=== PATIENT | female | born 1930 | race Caucasian/White ===

== ENCOUNTER → 2016-12-09 | Outpatient (CLI) | payer MEDICARE ==
[2016-12-09 11:50] LABS: Blood Urea Nitrogen 11 mg/dL (7-17); Non-African American GFR(MDRD) 60 (>60 ml/min/1.73 sqM)
--- NOTE | 2016-12-09 13:46 | CT ---
EXAMINATION TYPE: CT abdomen w con DATE OF EXAM: 12/09/2016 COMPARISON: NONE HISTORY: 86-year-old female with abdominal pain TECHNIQUE: Contiguous axial scanning of the abdomen and pelvis following administration of 100 ml Omn ipaque 300 IV contrast. Delayed through the kidneys and coronal/sagittal reconstructions performed. CT DLP: 849 mGycm Automated exposure control for dose reduction was used. FINDINGS: The heart is upper limits of normal in size without pericardial effusion. There is some patchy atelec tasis at the inferior lingula and additional mild dependent atelectasis. There is a moderate-sized hiatal hernia. No focal liver lesion or biliary ductal dilatation. Portal venous system is patent. Adrenal glands, spleen, and pancreas appear within normal limits. Subcentimeter hypodensities within the lower pole right kidney too small for accurate CT characteriza tion, suggestive of cysts. There is a 2.2 x 1.3 cm soft tissue nodule in the left renal fossa to which the left renal artery and vein extend. The left ureter extends from this structure and is mildly dilated with a internal filli ng defects along the proximal to middle third segment. There are approximately 4 filling defects rang ing from 5 mm to 2 mm, refer to axial images 39, 41, 43, 51. No dilated small bowel, free fluid, or free air. Mild stool burden. No pericolonic inflammatory change. Bones: There is an advanced degenerated levoconvex scoliosis of the lumbar spine with prior lower lum bar laminectomies. IMPRESSION: 1. A 2.2 x 1.3 cm soft tissue nodule in the left renal fossa to which the left renal vasculature exte nds and from which the left ureter arises. Findings suggest chronic renal atrophy/dysplastic kidney. 2. Approximately 4 calculi within the proximal to middle third left ureter measuring from 5 mm to 2 m m with mild hydroureter. 3. Moderate-sized hiatal hernia. 4. Advanced degenerative levoconvex scoliosis.
== END ==
LOC: RADCTMAIN 11:10
PROVIDERS: ATTEND Family Medicine
DX: N20.1 Calculus of ureter (principal); K44.9 Diaphragmatic hernia without obstruction or gangrene
CPT/HCPCS: 82565; 84520; 74160; 36415; Q9967

== ENCOUNTER → 2017-08-15 | Outpatient (CLI) | payer MEDICARE ==
--- NOTE | 2017-08-15 22:14 | MR ---
EXAMINATION TYPE: MR brain wo/w con DATE OF EXAM: 08/15/2017 COMPARISON: 07/30/2012 HISTORY: Headaches CONTRAST: Performed utilizing 6 mL intravenous Gadavist gadolinium contrast. TECHNIQUE: Multiplanar, multiecho imaging on a 3.0 Catina magnet is performed through the brain. Stud y is performed within 24 hours of arrival to the hospital. The craniovertebral junction is normal. The pituitary is normal. Diffusion-weighted imaging is performed. No abnormal hyperintensity is present to suggest an acute i ntracranial infarct or acute ischemic change. There is patchy to confluent periventricular white matter hyperintensity on T2 and inversion recovery weighted sequences. Findings are likely related to microvascular ischemic change. Ventricles and sulci are prominent for the patient age. There is on postcontrast imaging a vessel extending from the right lateral ventricle to the dural mar gin. This appears to be a venous angioma was present on the comparison study. IMPRESSIONS: 1. Atrophy with periventricular white matter ischemic changes relatively stable from the comparison o f 07/30/2012. 2. Stable venous angioma right frontal region.
--- NOTE | 2017-08-15 22:17 | MR ---
EXAMINATION TYPE: MR angio head wo con DATE OF EXAM: 08/15/2017 COMPARISON: NONE HISTORY: Headaches CONTRAST: None TECHNIQUE: Multiplanar multiecho imaging on a 3.0 Catina magnet is performed through the [place]. 3-D [id number] imaging is performed. Source images are reviewed on the computer in the axi al plane. Reconstructed images rotating on the computer are reviewed. FINDINGS: The internal carotid arteries bifurcate normally into A1 and M1 segments. The A2 segments are normal. Middle cerebral artery branches are normal. Anterior communicating artery is patent. The right posterior communicating artery is absent. The left posterior communicating artery is absent. Vertebrobasilar arteries within the [id number] are normal. Posterior cerebral vasculature is norm al. No suspicious aneurysm or aneurysmal dilatation is evident. No obstructions are identified. No significant flow-limiting stenosis is evident. Right Venous angioma is out of the [id number]. IMPRESSIONS: 1. NORMAL MRA HABEMATOLEL OF LUU.
== END | disposition home or self-care (01) ==
LOC: RADMRIMAIN 15:52
PROVIDERS: ATTEND Family Medicine
DX: I67.82 Cerebral ischemia (principal); G31.9 Degenerative disease of nervous system, unspecified; Q28.3 Other malformations of cerebral vessels
CPT/HCPCS: 82565; 70544; 70553; 36415; A9581

== ENCOUNTER → 2017-09-01 | Outpatient (CLI) | payer MEDICARE ==
--- NOTE | 2017-09-01 15:04 | BD ---
EXAMINATION TYPE: Axial Bone Density DATE OF EXAM: 09/01/2017 COMPARISON: NONE CLINICAL HISTORY: Z 78.0 Height: 4 FT 10 IN Weight: 133 FRAX RISK QUESTIONS: Secondary Osteoporosis: 3. Menopause before 45: UNSURE RISK FACTORS HISTORY OF: Active: YES Postmenopausal woman: PART HYST AGE 23 Lost more than 2 inches in height since high school: YES MEDICATIONS: Additional Medications: VIT E , MULTI,ASPIRIN, NITRO Additional History: EXAM MEASUREMENTS: Bone mineral densitometry was performed using the [employer] System. Bone mineral density as measured about the Lumbar spine is: ----- L1-L4(G/cm2): 1.366 T Score Values are as follows: ----- L2: -0.2 ----- L3: 2.5 ----- L4: 5.3 ----- L1-L4: 1.6 BASELINE Bone mineral density about the R hip (g/cm2): 0.790 Bone mineral density about the L hip (g/cm2): 0.765 T Score values are as follows: -----R Neck: -1.8 -----L Neck: -2.0 -----R Total: -0.5 -----L Total: -1.0 BASELINE IMPRESSION: Osteopenia There is a marked scoliosis. NOTE: T-SCORE=SD OF THE YOUNG ADULT MEAN.
--- NOTE | 2017-09-04 11:30 | MM ---
Reason for exam: screening (asymptomatic). Physical Findings: A clinical breast exam by your physician is recommended on an annual basis and results should be correlated with mammographic findings. MG 3D Screening Mammo W/Cad Bilateral CC and MLO view(s) were taken. No prior studies available for comparison. The breast tissue is heterogeneously dense. This may lower the sensitivity of mammography. Benign appearing bilateral calcifications. No suspicious abnormality. ASSESSMENT: Benign, BI-RAD 2 RECOMMENDATION: Routine screening mammogram of both breasts in 1 year.
== END | disposition home or self-care (01) ==
LOC: RADMAMWWP 12:36
PROVIDERS: ATTEND Family Medicine
DX: Z12.31 Encounter for screening mammogram for malignant neoplasm of breast (principal); M85.80 Other specified disorders of bone density and structure, unspecified site; Z78.0 Asymptomatic menopausal state
CPT/HCPCS: 77063; 77067; 77080

== ENCOUNTER → 2018-05-18 | Outpatient (CLI) | payer MEDICARE ==
--- NOTE | 2018-05-18 19:06 | ECHOF ---
Referral Reason:I25.2 Old myocardial infarction MEASUREMENTS -------- HEIGHT: 152.4 cm WEIGHT: 57.6 kg BP: IVSd: 1.1 cm (0.6 - 1.1) LVIDd: 3.7 cm (3.9 - 5.3) LVPWd: 1.1 cm (0.6 - 1.1) IVSs: 1.4 cm LVIDs: 2.5 cm LVPWs: 1.4 cm LAESV Index (A-L): 21.66 ml/m Ao Diam: 2.3 cm (2.0 - 3.7) AV Cusp: 1.4 cm (1.5 - 2.6) LA Diam: 3.4 cm (2.7 - 3.8) MV E Krish: 0.69 m/s MV DecT: 185 ms MV A Krish: 1.33 m/s MV E/A Ratio: 0.52 AV maxP.15 mmHg AV meanP.35 mmHg RAP: 5.00 mmHg RVSP: 23.93 mmHg FINDINGS -------- Sinus rhythm. This was a technically good study. LV size, wall thickness and systolic function are normal, with an EF greater than 55%. The left radha tricular size is normal. The right ventricle is normal in size. The left atrial size is normal. The right atrial size is normal. Aortic valve is trileaflet and is mildly thickened. There is mild aortic regurgitation. Peak/mean gradient across the Aortic Valve is 14.15mmHg / 8.35mmHg. Mild mitral annular calcification present. Mild mitral regurgitation is present. Mild tricuspid regurgitation present. There is no evidence of pulmonary hypertension. The right v entricular systolic pressure, as measured by Doppler, is 23.93mmHg. There is no pulmonic regurgitation present. The aortic root size is normal. There is no pericardial effusion. CONCLUSIONS -------- 1. LV size, wall thickness and systolic function are normal, with an EF greater than 55%. 2. The left ventricular size is normal. 3. The right ventricle is normal in size. 4. The left atrial size is normal. 5. The right atrial size is normal. 6. Aortic valve is trileaflet and is mildly thickened. 7. There is mild aortic regurgitation. 8. Peak/mean gradient across the Aortic Valve is 14.15mmHg / 8.35mmHg. 9. Mild mitral annular calcification present. 10. Mild mitral regurgitation is present. 11. Mild tricuspid regurgitation present. 12. There is no evidence of pulmonary hypertension. 13. The right ventricular systolic pressure, as measured by Doppler, is 23.93mmHg. 14. There is no pulmonic regurgitation present. 15. The aortic root size is normal. 16. There is no pericardial effusion. GOLF COURSE RANGER: Brii Jimenez RDCS
== END ==
LOC: RADECHMAIN 08:24
PROVIDERS: ATTEND Family Medicine
DX: I08.1 Rheumatic disorders of both mitral and tricuspid valves (principal)
CPT/HCPCS: 93306

== ENCOUNTER 2018-07-05 06:54 | Inpatient (IN) | payer MEDICARE ==
[2018-07-05] MEDS ORDERED: SODIUM CHLORIDE 0.9% 500 ML 500 ML IV STA (07:05)
--- NOTE | 2018-07-05 07:09 | ED ---
Syncope HPI - General Stated Complaint: syncope Time Seen by Provider: 07/05/18 07:00 Source: patient, EMS, RN notes reviewed, old records reviewed Mode of arrival: EMS - History of Present Illness Initial Comments: This is a 87-year-old female with a past medical history significant for myocardial infarction no known history of stroke or syncope who apparently was found unresponsive on a toilet and family members prior to the brought in by EMS personnel. She complained of weakness also apparently she had a burgundy- colored emesis. Additionally there was reports of altered mental status and weakness. Patient was noted upon arrival to be hyperventilating and anxious. She seems be awake alert at this time. She is answering questions. No reports of any trauma any fall. No complaints of headache chest pain shortness breath or palpitations or other symptoms at this time - Related Data Home Medications Medication Instructions Recorded Confirmed Levofloxacin [Levaquin] 500 mg PO DAILY 07/05/18 07/05/18 Multivitamins, Thera [Multivitamin 1 tab PO DAILY 07/05/18 07/05/18 (formulary)] Vitamin E (Dl,Tocopheryl Acet) 400 unit PO BID 07/05/18 07/05/18 [Vitamin E] Allergies Allergy/AdvReac Type Severity Reaction Status Date / Time aspirin AdvReac Unknown Unknown Verified 07/05/18 07:19 Review of Systems ROS Statement: Those systems with pertinent positive or pertinent negative responses have been documented in the HPI. ROS Other: All systems not noted in ROS Statement are negative. General Exam - General Exam Comments Initial Comments: This a well-developed sec appearing female who is awake alert but very anxious. General appearance: alert, anxious Head exam: Present: atraumatic, normocephalic, normal inspection Eye exam: Present: normal appearance, PERRL, EOMI. Absent: scleral icterus, conjunctival injection, periorbital swelling ENT exam: Present: mucous membranes dry Neck exam: Present: normal inspection, full ROM, other (No stridor JVD or bruits). Absent: tenderness, meningismus, lymphadenopathy Respiratory exam: Present: normal lung sounds bilaterally. Absent: respiratory distress, wheezes, rales, rhonchi, stridor Cardiovascular Exam: Present: regular rate, normal rhythm, normal heart sounds. Absent: systolic murmur, diastolic murmur, rubs, gallop, clicks GI/Abdominal exam: Present: soft, normal bowel sounds. Absent: distended, tenderness, guarding, rebound, rigid, bruit, pulsatile mass Extremities exam: Present: normal inspection, full ROM, normal capillary refill. Absent: tenderness, pedal edema, joint swelling, calf tenderness Back exam: Present: normal inspection Neurological exam: Present: alert, oriented X3, CN II-XII intact Psychiatric exam: Present: normal affect, normal mood Skin exam: Present: warm, dry, intact, normal color. Absent: rash Course Vital Signs 07/05/18 07/05/18 07/05/18 06:55 08:02 08:15 Temperature 97.4 F L Pulse Rate 65 63 63 Respiratory 18 22 20 Rate Blood Pressure 179/90 189/79 188/98 O2 Sat by Pulse 97 98 99 Oximetry 07/05/18 08:30 Temperature Pulse Rate 61 Respiratory 25 H Rate Blood Pressure 187/92 O2 Sat by Pulse 99 Oximetry - Reevaluation(s) Reevaluation #1: 07/05/18 09:37 ekg monitor: ekg monitor indicated for ruling out dysrhythmia. Patient had a heart rate of 55 no evidence of PACs or PVCs at the time. First-degree AV block is demonstrated. Reevaluation #2: 07/05/18 09:39 Reevaluation patient demonstrated the patient very anxious and did require some minimal IV sedation. Patient's was present I did discuss findings with him also. Patient has had no further episodes a syncopal episode. Patient questions whether she may have had a seizure as she was told by family that she was shaking on the toilet. EKG Findings - EKG Results: EKG: interpreted by ERMD (Sinus bradycardia rate of 54. Interval 224 QRS d uration 86 QT since QTC 490/464 first-degree AV block nonspecific lateral changes noted artifact present) Medical Decision Making - Medical Decision Making The case is discussed with Dr. Kang. Neurology will be consulted. - Lab Data Result diagrams: 07/05/18 07:45 07/05/18 07:45 Lab Results 07/05/18 07/05/18 07/05/18 Range/Units 07:14 07:45 07:45 WBC 6.4 (3.8-10.6) k/uL RBC 4.17 (3.80-5.40) m/uL Hgb 12.8 (11.4-16.0) gm/dL Hct 39.2 (34.0-46.0) % MCV 94.1 (80.0-100.0) fL MCH 30.7 (25.0-35.0) pg MCHC 32.7 (31.0-37.0) g/dL RDW 13.3 (11.5-15.5) % Plt Count 244 (150-450) k/uL Neutrophils % 66 % Lymphocytes % 26 % Monocytes % 4 % Eosinophils % 3 % Basophils % 1 % Neutrophils # 4.2 (1.3-7.7) k/uL Lymphocytes # 1.6 (1.0-4.8) k/uL Monocytes # 0.3 (0-1.0) k/uL Eosinophils # 0.2 (0-0.7) k/uL Basophils # 0.0 (0-0.2) k/uL PT (9.0-12.0) sec INR (<1.2) APTT (22.0-30.0) sec Sodium 144 (137-145) mmol/L Potassium 3.4 L (3.5-5.1) mmol/L Chloride 110 H (98-107) mmol/L Carbon Dioxide 25 (22-30) mmol/L Anion Gap 9 mmol/L BUN 14 (7-17) mg/dL Creatinine 0.72 (0.52-1.04) mg/dL Est GFR (CKD-EPI)AfAm 87 (>60 ml/min/1.73 sqM) Est GFR (CKD-EPI)NonAf 75 (>60 ml/min/1.73 sqM) Glucose 101 H (74-99) mg/dL POC Glucose (mg/dL) 116 H (75-99) mg/dL POC Glu Auto Radio Mechanic ID Anamika Horowitz Plasma Lactic Acid Jourdan (0.7-2.0) mmol/L Calcium 9.4 (8.4-10.2) mg/dL Magnesium 2.0 (1.6-2.3) mg/dL Total Bilirubin 0.9 (0.2-1.3) mg/dL AST 23 (14-36) U/L ALT 27 (9-52) U/L Alkaline Phosphatase 48 (38-126) U/L Creatine Kinase 154 H (30-135) U/L Troponin I (0.000-0.034) ng/mL Total Protein 6.9 (6.3-8.2) g/dL Albumin 4.1 (3.5-5.0) g/dL Urine Color Urine Appearance (Clear) Urine pH (5.0-8.0) Ur Specific [place] (1.001-1.035) Urine Protein (Negative) Urine Glucose (UA) (Negative) Urine Ketones (Negative) Urine Blood (Negative) Urine Nitrite (Negative) Urine Bilirubin (Negative) Urine Urobilinogen (<2.0) mg/dL Ur Leukocyte Esterase (Negative) Urine RBC (0-5) /hpf Urine WBC (0-5) /hpf Ur Squamous Epith Cells (0-4) /hpf Urine Mucus (None) /hpf Stool Occult Blood (Negative) 07/05/18 07/05/18 07/05/18 Range/Units 07:45 07:45 07:45 WBC (3.8-10.6) k/uL RBC (3.80-5.40) m/uL Hgb (11.4-16.0) gm/dL Hct (34.0-46.0) % MCV (80.0-100.0) fL MCH (25.0-35.0) pg MCHC (31.0-37.0) g/dL RDW (11.5-15.5) % Plt Count (150-450) k/uL Neutrophils % % Lymphocytes % % Monocytes % % Eosinophils % % Basophils % % Neutrophils # (1.3-7.7) k/uL Lymphocytes # (1.0-4.8) k/uL Monocytes # (0-1.0) k/uL Eosinophils # (0-0.7) k/uL Basophils # (0-0.2) k/uL PT 10.7 (9.0-12.0) sec INR 1.0 (<1.2) APTT 23.0 (22.0-30.0) sec Sodium (137-145) mmol/L Potassium (3.5-5.1) mmol/L Chloride (98-107) mmol/L Carbon Dioxide (22-30) mmol/L Anion Gap mmol/L BUN (7-17) mg/dL Creatinine (0.52-1.04) mg/dL Est GFR (CKD-EPI)AfAm (>60 ml/min/1.73 sqM) Est GFR (CKD-EPI)NonAf (>60 ml/min/1.73 sqM) Glucose (74-99) mg/dL POC Glucose (mg/dL) (75-99) mg/dL POC Glu Auto Radio Mechanic ID Plasma Lactic Acid Jourdan 1.6 (0.7-2.0) mmol/L Calcium (8.4-10.2) mg/dL Magnesium (1.6-2.3) mg/dL Total Bilirubin (0.2-1.3) mg/dL AST (14-36) U/L ALT (9-52) U/L Alkaline Phosphatase (38-126) U/L Creatine Kinase (30-135) U/L Troponin I <0.012 (0.000-0.034) ng/mL Total Protein (6.3-8.2) g/dL Albumin (3.5-5.0) g/dL Urine Color Urine Appearance (Clear) Urine pH (5.0-8.0) Ur Specific [place] (1.001-1.035) Urine Protein (Negative) Urine Glucose (UA) (Negative) Urine Ketones (Negative) Urine Blood (Negative) Urine Nitrite (Negative) Urine Bilirubin (Negative) Urine Urobilinogen (<2.0) mg/dL Ur Leukocyte Esterase (Negative) Urine RBC (0-5) /hpf Urine WBC (0-5) /hpf Ur Squamous Epith Cells (0-4) /hpf Urine Mucus (None) /hpf Stool Occult Blood (Negative) 07/05/18 07/05/18 Range/Units 07:55 08:43 WBC (3.8-10.6) k/uL RBC (3.80-5.40) m/uL Hgb (11.4-16.0) gm/dL Hct (34.0-46.0) % MCV (80.0-100.0) fL MCH (25.0-35.0) pg MCHC (31.0-37.0) g/dL RDW (11.5-15.5) % Plt Count (150-450) k/uL Neutrophils % % Lymphocytes % % Monocytes % % Eosinophils % % Basophils % % Neutrophils # (1.3-7.7) k/uL Lymphocytes # (1.0-4.8) k/uL Monocytes # (0-1.0) k/uL Eosinophils # (0-0.7) k/uL Basophils # (0-0.2) k/uL PT (9.0-12.0) sec INR (<1.2) APTT (22.0-30.0) sec Sodium (137-145) mmol/L Potassium (3.5-5.1) mmol/L Chloride (98-107) mmol/L Carbon Dioxide (22-30) mmol/L Anion Gap mmol/L BUN (7-17) mg/dL Creatinine (0.52-1.04) mg/dL Est GFR (CKD-EPI)AfAm (>60 ml/min/1.73 sqM) Est GFR (CKD-EPI)NonAf (>60 ml/min/1.73 sqM) Glucose (74-99) mg/dL POC Glucose (mg/dL) (75-99) mg/dL POC Glu Auto Radio Mechanic ID Plasma Lactic Acid Jourdan (0.7-2.0) mmol/L Calcium (8.4-10.2) mg/dL Magnesium (1.6-2.3) mg/dL Total Bilirubin (0.2-1.3) mg/dL AST (14-36) U/L ALT (9-52) U/L Alkaline Phosphatase (38-126) U/L Creatine Kinase (30-135) U/L Troponin I (0.000-0.034) ng/mL Total Protein (6.3-8.2) g/dL Albumin (3.5-5.0) g/dL Urine Color Colorless Urine Appearance Clear (Clear) Urine pH 7.5 (5.0-8.0) Ur Specific [place] 1.007 (1.001-1.035) Urine Protein Negative (Negative) Urine Glucose (UA) Negative (Negative) Urine Ketones Trace H (Negative) Urine Blood Negative (Negative) Urine Nitrite Negative (Negative) Urine Bilirubin Negative (Negative) Urine Urobilinogen <2.0 (<2.0) mg/dL Ur Leukocyte Esterase Small H (Negative) Urine RBC 2 (0-5) /hpf Urine WBC 6 H (0-5) /hpf Ur Squamous Epith Cells <1 (0-4) /hpf Urine Mucus Rare H (None) /hpf Stool Occult Blood Negative (Negative) Critical Care Time Critical Care Time: Yes Critical Care Time: 31 minutes of critical care time which includes initial presentation with history physical labs x-rays multiple reevaluation the patient. Discussed with the patient's family discussed with the main physician admission orders and documentation of the above Disposition Clinical Impression: Syncopal episodes, Anxiety reaction, Dehydration Disposition: ADMITTED IP TO THIS [facility] Condition: Fair Referrals: None,Stated [REFERRING] - 1-2 days
[2018-07-05 07:17] LABS: Glucose,Whole Blood 116 mg/dL (75-99)
--- NOTE | 2018-07-05 07:39 | XR ---
EXAMINATION TYPE: XR chest 2V DATE OF EXAM: 07/05/2018 COMPARISON: 2 view chest x-ray December 20, 2012 HISTORY: Syncope and weakness. TECHNIQUE: Frontal and lateral views of the chest are obtained. FINDINGS: Diminished inspiration on current study is seen. There is chronic parenchymal change withou t suspicious focal air space opacity, pleural effusion, or pneumothorax seen. The cardiac silhouette size is upper limits of normal with atherosclerotic and ectatic aorta. Retrocardiac opacity consist ent with moderate to large size hiatal hernia is present The osseous structures are intact. IMPRESSION: Chronic changes without acute pulmonary process.
--- NOTE | 2018-07-05 07:41 | CT ---
EXAMINATION TYPE: CT brain wo con DATE OF EXAM: 07/05/2018 HISTORY: syncope CT DLP: 2112.4 mGycm. Automated Exposure Control for Dose Reduction was Utilized. TECHNIQUE: CT scan of the head is performed without contrast. COMPARISON: MRI brain August 15, 2017. FINDINGS: There is no acute intracranial hemorrhage or midline shift identified. There is diffuse v entricular and sulcal prominence consistent with diffuse age-related cerebral atrophy. There is low- attenuation in the periventricular white matter consistent with chronic small vessel ischemic change. Bilateral scleral calcifications are present. Visualized sinuses are clear. IMPRESSION: No acute intracranial hemorrhage or midline shift. There is moderate diffuse age-relate d cerebral atrophy and chronic small vessel ischemic change redemonstrated.
[2018-07-05] MEDS: SODIUM CHLORIDE 0.9% 1,000 ML IV STA ×2 (07:42→12:10)
[2018-07-05 07:59] LABS: Basophils % (A) 1 %; Eosinophils # (A) 0.2 k/uL (0-0.7); Eosinophils % (A) 3 %; HCT 39.2 % (34.0-46.0); HGB 12.8 gm/dL (11.4-16.0); Lymphocytes # (A) 1.6 k/uL (1.0-4.8); Lymphocytes % (A) 26 %; MCH 30.7 pg (25.0-35.0); MCHC 32.7 g/dL (31.0-37.0); MCV 94.1 fL (80.0-100.0); Mean Platelet Volume 6.8; Monocytes # (A) 0.3 k/uL (0-1.0); Monocytes % (A) 4 %; Neutrophils # (A) 4.2 k/uL (1.3-7.7); Neutrophils % (A) 66 %; Platelet Count 244 k/uL (150-450); RBC 4.17 m/uL (3.80-5.40); RDW 13.3 % (11.5-15.5); WBC 6.4 k/uL (3.8-10.6)
[2018-07-05 08:05] LABS: Prothrombin Time 10.7 sec (9.0-12.0)
[2018-07-05 08:08] LABS: Albumin 4.1 g/dL (3.5-5.0); Calcium 9.4 mg/dL (8.4-10.2); Potassium 3.4 mmol/L (3.5-5.1); Total Bilirubin 0.9 mg/dL (0.2-1.3); Total Protein 6.9 g/dL (6.3-8.2)
[2018-07-05] MEDS ORDERED: LORazepam 2 MG/ML INJ IV STA (08:14)
[2018-07-05 09:04] LABS: Appearance,Urine Clear (Clear); Bilirubin,Urine Negative (Negative); Blood,Urine Negative (Negative); Color,Urine Colorless; Glucose,Urine (UA) Negative (Negative); Ketones,Urine Trace (Negative); Leukocyte Esterase,Urine Small (Negative); Mucus,Urine Rare /hpf; Nitrite,Urine Negative (Negative); PH, Urine 7.5 (5.0-8.0); Protein,Urine Negative (Negative); RBC,Urine 2 /hpf (0-5); Specific Gravity,Urine 1.007 (1.001-1.035); Squamous Epithelial Cell,Urine <1 /hpf (0-4); Urobilinogen,Urine <2.0 mg/dL (<2.0); WBC,Urine 6 /hpf (0-5)
[2018-07-05] MEDS ORDERED: ACETAMINOPHEN TAB 325 MG TAB PO PRN (09:41)
[2018-07-05] MEDS ORDERED: NALOXONE 0.4 MG/ML 1 ML VIAL IV PRN (09:41)
[2018-07-05] MEDS ORDERED: LORazepam 1 MG TAB PO PRN (11:38)
--- NOTE | 2018-07-05 11:44 | P.HPIM ---
History of Present Illness 87-year-old female was found in the bathroom sitting on the toilet with some tremorous motion family concerned with seizures. Patient was being worked up in family practice physician for the same do not have the results back from those tests. Patient noted to be hypertensive lisinopril started. Patient to be evaluated by cardiology and neurology Dr. Chao Review of Systems Gastrointestinal: Reports constipation, Reports diarrhea Past Medical History Past Medical History: Asthma, Osteoarthritis (OA) Additional Past Medical History / Comment(s): Spinal stenosis, scoliosis, chronic back pain radiates down L leg with numbness/burning sensation, born with single kidney, allery induced asthma. History of Any Multi-Drug Resistant Organisms: None Reported Past Surgical History: Adenoidectomy, Appendectomy, Back Surgery, Tonsillectomy Additional Past Surgical History / Comment(s): L5-S1 decompression lumbar laminectomy, bilateral cataract removal/lens implants, Past Anesthesia/Blood Transfusion Reactions: No Reported Reaction Smoking Status: Never smoker - Past Family History Father Family Medical History: Cancer Additional Family Medical History / Comment(s): Father had cancer-pt's spouse unsure what type. Mother Family Medical History: No Reported History Medications and Allergies Home Medications Medication Instructions Recorded Confirmed Type Levofloxacin [Levaquin] 500 mg PO DAILY 07/05/18 07/05/18 History Multivitamins, Thera [Multivitamin 1 tab PO DAILY 07/05/18 07/05/18 History (formulary)] Vitamin E (Dl,Tocopheryl Acet) 400 unit PO BID 07/05/18 07/05/18 History [Vitamin E] Allergies Allergy/AdvReac Type Severity Reaction Status Date / Time aspirin AdvReac Unknown Unknown Verified 07/05/18 07:19 Physical Exam Vitals: Vital Signs Temp Pulse Resp BP Pulse Ox 07/05/18 10:15 51 L 18 176/82 96 07/05/18 09:45 54 L 17 177/70 07/05/18 09:30 51 L 18 166/70 07/05/18 09:15 72 20 180/95 96 07/05/18 09:00 53 L 18 176/72 90 L 07/05/18 08:30 61 25 H 187/92 99 07/05/18 08:15 63 20 188/98 99 07/05/18 08:02 63 22 189/79 98 07/05/18 06:55 97.4 F L 65 18 179/90 97 Intake and Output 07/04/18 07/05/18 07/05/18 22:59 06:59 14:59 Other: Weight 75.4 kg - Constitutional General appearance: mild distress - EENT Eyes: PERRLA Ears: bilateral: normal - Neck Neck: normal ROM - Respiratory Respiratory: bilateral: CTA - Cardiovascular Rhythm: regular - Gastrointestinal General gastrointestinal: soft - Integumentary Integumentary: normal - Neurologic Neurologic: CNII-XII intact - Musculoskeletal Musculoskeletal: generalized weakness - Psychiatric Psychiatric: A&O x's 3 Results CBC & Chem 7: 07/05/18 07:45 07/05/18 07:45 Labs: Abnormal Lab Results - Last 24 Hours (Table) 07/05/18 07/05/18 07/05/18 Range/Units 07:14 07:45 08:43 Potassium 3.4 L (3.5-5.1) mmol/L Chloride 110 H (98-107) mmol/L Glucose 101 H (74-99) mg/dL POC Glucose (mg/dL) 116 H (75-99) mg/dL Creatine Kinase 154 H (30-135) U/L Urine Ketones Trace H (Negative) Ur Leukocyte Esterase Small H (Negative) Urine WBC 6 H (0-5) /hpf Urine Mucus Rare H (None) /hpf Chest x-ray: report reviewed CT Scan - head: report reviewed Thrombosis Risk Factor Assmnt - Choose All That Apply Any of the Below Risk Factors Present?: Yes Each Factor Represents 1 point: Obesity (BMI >25) Other Risk Factors: Yes Each Risk Factor Represents 3 Points: Age 75 years or older Other congenital or acquired thrombophilia - If yes, enter type in comment: No Thrombosis Risk Factor Assessment Total Risk Factor Score: 4 Thrombosis Risk Factor Assessment Level: Moderate Risk Assessment and Plan Plan: Assessment Syncope Anxiety reaction Dehydration Hypertension Diarrhea recent Levaquin for UTI History of asthma 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
[2018-07-05] MEDS: SODIUM CHLORIDE 0.9% 1,000 ML IV SCH ×2 (12:10→23:13)
--- NOTE | 2018-07-05 13:34 | P.CNNES ---
History of Present Illness Consult date: 07/05/18 Reason for Consult: Syncopal episode History of Present Illness: Patient is a 87-year-old female who came to the hospital this morning for altere d mental status. Patient apparently got up at 5 AM as usual, woke her up and according to her was "walking all over the house". She was confused, went to the bathroom wanted to throw up. Patient does not use any assistive device. noticed that patient was jerking. There is no clinical evidence of dementia as per her . Patient appears very restless, gasping for air, stating "help me" but not able to tell what is hurting. Denies any headache, chest pain or any pain in the body. Please refer to examination below. Patient had computed tomography scan of the head, which revealed no acute process. There is moderate diffuse age-related cerebral atrophy and chronic small vessel ischemic change. EKG showed sinus bradycardia with first-degree AV block. Blood tests showed normal CBC, PT/PTT, sodium 144 potassium 3.4 normal renal functions. Urinalysis is negative for infection, showed small amount of leukocyte esterase, 6 WBCs. Her last hemoglobin A1c no rmal 5.5 couple years ago. Patient was hospitalized 1 week prior to the for couple falls and a UTI. One of the falls she was walking to the front door, when she flopped down and fell. Another event happened in the bedroom. She was admitted to another hospital where she underwent testing and everything came back normal. Patient had an MRI of the brain performed 08/15/2017 which was normal. Patient had a normal MRA of the head also. Patient had a 2-D echo on 05/18/2018, which revealed EF 55% left-ventricular size is normal. Left atrial size is normal. Patient's cholesterol is 260, LDL 177 Review of Systems Patient denies headache, chest pain or pain in the body. Patient states she is not feeling well. Cannot tell what exactly. Rest of the review of systems cannot be obtained at this time because of patient's mental status. Past Medical History Past Medical History: Asthma, Osteoarthritis (OA) Additional Past Medical History / Comment(s): Spinal stenosis, scoliosis, chr onic back pain radiates down L leg with numbness/burning sensation, born with single kidney, allery induced asthma. History of Any Multi-Drug Resistant Organisms: None Reported Past Surgical History: Adenoidectomy, Appendectomy, Back Surgery, Tonsillectomy Additional Past Surgical History / Comment(s): L5-S1 decompression lumbar laminectomy, bilateral cataract removal/lens implants, Past Anesthesia/Blood Transfusion Reactions: No Reported Reaction Smoking Status: Never smoker - Past Family History Father Family Medical History: Cancer Additional Family Medical History / Comment(s): Father had cancer-pt's spouse unsure what type. Mother Family Medical History: No Reported History Medications and Allergies Home Medications Medication Instructions Recorded Confirmed Type Levofloxacin [Levaquin] 500 mg PO DAILY 07/05/18 07/05/18 History Multivitamins, Thera [Multivitamin 1 tab PO DAILY 07/05/18 07/05/18 History (formulary)] Vitamin E (Dl,Tocopheryl Acet) 400 unit PO BID 07/05/18 07/05/18 History [Vitamin E] Allergies Allergy/AdvReac Type Severity Reaction Status Date / Time aspirin AdvReac Unknown Unknown Verified 07/05/18 07:19 Physical Examination - Vital Signs Vital Signs: Vital Signs Temp Pulse Resp BP Pulse Ox 07/05/18 10:15 51 L 18 176/82 96 07/05/18 09:45 54 L 17 177/70 07/05/18 09:30 51 L 18 166/70 07/05/18 09:15 72 20 180/95 96 07/05/18 09:00 53 L 18 176/72 90 L 07/05/18 08:30 61 25 H 187/92 99 07/05/18 08:15 63 20 188/98 99 07/05/18 08:02 63 22 189/79 98 07/05/18 06:55 97.4 F L 65 18 179/90 97 Intake and Output 07/04/18 07/05/18 07/05/18 22:59 06:59 14:59 Other: Weight 75.4 kg On examination patient is an elderly female, who is laying in the bed slightly diagonally. Patient was somnolent, has just gone to sleep. Patient went wakes up, thrashes in the bed. Very restless, gasping for air. States "help me". Patient able to tell me her name, name of her friend. Patient speaks clearly with no aphasia or dysarthria. She is breathing hard. Her face is symmetric. Pupils are round and reactive to light. Visual terrell could not be tested because of patient's non-compliance. 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 Patient moves her arms, left slightly more than the right. However when I elevate both arms up, both of them fall down with equal velocity/intensity with no loss of tone in any one extremity. Patient moves both lower extremities. Patient more easily touches her nose with the left index finger as compared to the right. She does have an IV line in the right elbow also which may be hampering. Reflexes are 1+ to 2 and plantars are upgoing bilaterally. Tone is normal bilaterally. Results - Laboratory Findings CBC and BMP: 07/05/18 07:45 07/05/18 07:45 Abnormal Lab Findings: Abnormal Labs 07/05/18 07/05/18 07/05/18 07:14 07:45 08:43 Potassium 3.4 L Chloride 110 H Glucose 101 H POC Glucose (mg/dL) 116 H Creatine Kinase 154 H Urine Ketones Trace H Ur Leukocyte Esterase Small H Urine WBC 6 H Urine Mucus Rare H Assessment and Plan Assessment: * Altered mental status, possible toxic metabolic encephalopathy. CVA appears less likely. Patient not on any medication at home that would produce altered mental status. * Dyskinesias/restlessness, unclear etiology possibly due to delirium. Plan: Agree with checking carotid Doppler. We will also check EEG to rule out any epileptiform activity. We will start aspirin 325 mg daily for now. We will check TSH, free T4, B12, folate, A1c. We will follow clinically with you.
--- NOTE | 2018-07-05 13:40 | P.CRDCN ---
History of Present Illness Consult date: 07/05/18 History of present illness: This is a 87-year-old female patient with no significant cardiac history who was brought by her family to the emergency room for further evaluation of change in mental status. The patient herself is very lethargic and sleepy and poor historian. The history was taken from her was bedside. According to her , the patient normally is very independent. She was in her usual state of health that this morgue attendant when the patient woke up her from sleep and at that point he noticed that she was confused. The patient stated that she felt that she was sick to her stomach at that point. Because of that the patient was brought to the emergency room for further evaluation. No indication that the patient didn't have any symptoms of chest pain or chest discomfort, feeling of heart racing or fluttering, or loss of consciousness. Currently the patient is in process of having a work up by the neurology service. The EKG showed sinus rhythm with sinus bradycardia and nonspecific changes only. No clearcut ischemic ST or T-wave abnormalities noted. She underwent a CTA of the brain which also did not show any acute abnormalities. The chest x-ray did not show any acute abnormalities. We get involved in the care of the patient for further evaluation of sinus bradycardia. The minimal heart rate the patient was in in the hospital was 60 beats per minutes. Currently she is not on any AV mercedes jovany agents. Past Medical History Past Medical History: Asthma, Osteoarthritis (OA) Additional Past Medical History / Comment(s): Spinal stenosis, scoliosis, chronic back pain radiates down L leg with numbness/burning sensation, born with single kidney, allery induced asthma. History of Any Multi-Drug Resistant Organisms: None Reported Past Surgical History: Adenoidectomy, Appendectomy, Back Surgery, Tonsillectomy Additional Past Surgical History / Comment(s): L5-S1 decompression lumbar laminectomy, bilateral cataract removal/lens implants, Past Anesthesia/Blood Transfusion Reactions: No Reported Reaction Smoking Status: Never smoker - Past Family History Father Family Medical History: Cancer Additional Family Medical History / Comment(s): Father had cancer-pt's spouse unsure what type. Mother Family Medical History: No Reported History Medications and Allergies Home Medications Medication Instructions Recorded Confirmed Type Levofloxacin [Levaquin] 500 mg PO DAILY 07/05/18 07/05/18 History Multivitamins, Thera [Multivitamin 1 tab PO DAILY 07/05/18 07/05/18 History (formulary)] Vitamin E (Dl,Tocopheryl Acet) 400 unit PO BID 07/05/18 07/05/18 History [Vitamin E] Allergies Allergy/AdvReac Type Severity Reaction Status Date / Time aspirin AdvReac Unknown Unknown Verified 07/05/18 07:19 Physical Exam Vitals: Vital Signs Temp Pulse Resp BP Pulse Ox 07/05/18 10:15 51 L 18 176/82 96 07/05/18 09:45 54 L 17 177/70 07/05/18 09:30 51 L 18 166/70 07/05/18 09:15 72 20 180/95 96 07/05/18 09:00 53 L 18 176/72 90 L 07/05/18 08:30 61 25 H 187/92 99 07/05/18 08:15 63 20 188/98 99 07/05/18 08:02 63 22 189/79 98 07/05/18 06:55 97.4 F L 65 18 179/90 97 Intake and Output 07/04/18 07/05/18 07/05/18 22:59 06:59 14:59 Other: Weight 75.4 kg - Constitutional General appearance: no acute distress - Respiratory Respiratory: bilateral: CTA - Cardiovascular Rhythm: regular Heart sounds: normal: S1, S2 Abnormal Heart Sounds: systolic murmur Results 07/05/18 07:45 07/05/18 07:45 Cardiac Enzymes 07/05/18 07/05/18 Range/Units 07:45 07:45 AST 23 (14-36) U/L Troponin I <0.012 (0.000-0.034) ng/mL Coagulation 07/05/18 Range/Units 07:45 PT 10.7 (9.0-12.0) sec APTT 23.0 (22.0-30.0) sec CBC 07/05/18 Range/Units 07:45 WBC 6.4 (3.8-10.6) k/uL RBC 4.17 (3.80-5.40) m/uL Hgb 12.8 (11.4-16.0) gm/dL Hct 39.2 (34.0-46.0) % Plt Count 244 (150-450) k/uL Comprehensive Metabolic Panel 07/05/18 Range/Units 07:45 Sodium 144 (137-145) mmol/L Potassium 3.4 L (3.5-5.1) mmol/L Chloride 110 H (98-107) mmol/L Carbon Dioxide 25 (22-30) mmol/L BUN 14 (7-17) mg/dL Creatinine 0.72 (0.52-1.04) mg/dL Glucose 101 H (74-99) mg/dL Calcium 9.4 (8.4-10.2) mg/dL AST 23 (14-36) U/L ALT 27 (9-52) U/L Alkaline Phosphatase 48 (38-126) U/L Total Protein 6.9 (6.3-8.2) g/dL Albumin 4.1 (3.5-5.0) g/dL Current Medications Generic Name Dose Route Start Last Admin Trade Name Freq PRN Reason Stop Dose Admin Acetaminophen 650 mg 07/05/18 09:41 Tylenol Tab PO Q6HR PRN Mild Pain or Fever > 100.5 Sodium Chloride 1,000 mls @ 75 mls/hr 07/05/18 07:05 07/05/18 12:10 Saline 0.9% IV 07/05/18 20:24 75 mls/hr .[id number] STA Administration Sodium Chloride 1,000 mls @ 80 mls/hr 07/05/18 09:45 07/05/18 12:10 Saline 0.9% IV Not Given .[id number] BARBARA Lisinopril 10 mg 07/06/18 09:00 Zestril PO DAILY BARBARA Lorazepam 1 mg 07/05/18 11:38 Ativan PO BID PRN Anxiety Multivitamins 1 each 07/06/18 09:00 Theragran PO DAILY BARBARA Naloxone HCl 0.2 mg 07/05/18 09:41 Narcan IV Q2M PRN Opioid Reversal Vitamin E 400 unit 07/05/18 21:00 Vitamin E PO BID BARBARA Intake and Output 07/04/18 07/05/18 07/05/18 22:59 06:59 14:59 Other: Weight 75.4 kg 07/05/18 07:45 07/05/18 07:45 Assessment and Plan Assessment: Assessment #1 change in mental status of unknown etiology #2 bradycardia with heart rate in the 50s #3 history of nephrectomy Plan #1 continue monitor the heart rate #2 the patient is not on any AV mercedes jovany agents #3 check the TSH #4 an echocardiogram was Doppler #5 follow-up with the patient Thank you for allowing us participate in her care and we'll continue following up with the patient
[2018-07-05 15:28] LABS: T4, Free (Free Thyroxine) 1.25 ng/dL (0.78-2.19)
--- NOTE | 2018-07-05 17:21 | US ---
EXAMINATION TYPE: US carotid duplex BILAT DATE OF EXAM: 07/05/2018 COMPARISON: NONE CLINICAL HISTORY: AMS, syncope. EXAM MEASUREMENTS: RIGHT: Peak Systolic Velocity (PSV) cm/sec ----- Right CCA: 36.9 ----- Right ICA: 69.7 ----- Right ECA: 67.1 ICA/CCA ratio: 1.9 RIGHT: End Diastole cm/sec ----- Right CCA: 6.3 ----- Right ICA: 6.0 ----- Right ECA: 0.0 LEFT: Peak Systolic Velocity (PSV) cm/sec ----- Left CCA: 70.2 ----- Left ICA: 68.0 ----- Left ECA: 219.9 ICA/CCA ratio: 1.0 LEFT: End Diastole cm/sec ----- Left CCA: 9.8 ----- Left ICA: 11.3 ----- Left ECA: 0.0 VERTEBRALS (direction of flow): Right Vertebral: Antegrade Left Vertebral: Antegrade Rhythm: Normal Technically difficult study performed portably on a patient who was sleeping and did not wake up duri ng exam. No significant stenosis seen. Elevated left ECA velocity. IMPRESSION: There is antegrade flow in the vertebral arteries. Images in measurements suggest less t tavarez 50% stenosis in both internal carotid arteries. There is evidence of 50-70% stenosis in the left external carotid artery. Criteria for Assigning % of Stenosis / Diameter reduction (Estimation based on the indirect measurements of the internal carotid artery velocities (ICA PSV). 1. Normal (no stenosis)=ICA PSV < 125 cm/s: ratio < 2.0: ICA EDV<40 cm/s. 2. Less than 50% stenosis=ICA PSV < 125 cm/s: ratio < 2.0: ICA EDV<40 cm/s. 3. 50 to 69% stenosis=ICA PSV of 125 to 230 cm/s: ration 2.0 ? 4.0: ICA EDV 40-100 cm/s. 4. Greater than 70% stenosis to near occlusion= ICA PSV > 230 cm/s: ratio > 4.0: ICA EDV > 100 cm/s. 5. Near occlusion= ICA PSV velocities may be low or undetectable: variable ratio and ICA EDV. 6. Total occlusion=unable to detect flow.
[2018-07-05 20:37] LABS: ABG Base Excess -2.4 mmol/L; ABG HCO3 19 mmol/L (21-25); ABG Oxygen Saturation 97.8 % (94-97); ABG PO2 114 mmHg (83-108); ABG TCO2 20 mmol/L (19-24); Allen Test Performed? Yes
[2018-07-05 20:39] LABS: ABG PCO2 19 mmHg (35-45)
[2018-07-05 20:48] LABS: Glucose,Whole Blood 105 mg/dL (75-99)
--- NOTE | 2018-07-05 21:03 | XR ---
EXAMINATION TYPE: XR chest 1V portable DATE OF EXAM: 07/05/2018 COMPARISON: 07/05/2018 HISTORY: Short of breath TECHNIQUE: Single frontal view of the chest is obtained. FINDINGS: There is no heart failure nor confluent pneumonic infiltrate. Costophrenic angles are anders r. There are chest leads. Thoracic aorta is atheromatous. IMPRESSION: No active cardiopulmonary disease. Cardiomegaly. Hiatal hernia appears decreased compare d to old exam.
[2018-07-05 21:05] LABS: Basophils % (A) 0 %; Eosinophils # (A) 0.2 k/uL (0-0.7); Eosinophils % (A) 2 %; HCT 43.1 % (34.0-46.0); HGB 13.9 gm/dL (11.4-16.0); Lymphocytes # (A) 1.4 k/uL (1.0-4.8); Lymphocytes % (A) 15 %; MCH 30.7 pg (25.0-35.0); MCHC 32.2 g/dL (31.0-37.0); MCV 95.4 fL (80.0-100.0); Monocytes # (A) 0.2 k/uL (0-1.0); Monocytes % (A) 3 %; Neutrophils # (A) 7.3 k/uL (1.3-7.7); Neutrophils % (A) 79 %; Platelet Count 278 k/uL (150-450); RBC 4.52 m/uL (3.80-5.40); RDW 13.5 % (11.5-15.5); WBC 9.2 k/uL (3.8-10.6)
[2018-07-05] MEDS ORDERED: FUROSEMIDE 10 MG/ML 2 ML VIAL IV STA (21:05)
[2018-07-05 21:15] LABS: ALT 21 U/L (9-52); AST 27 U/L (14-36); African American GFR (CKD) >90 (>60 ml/min/1.73 sqM); Albumin 4.6 g/dL (3.5-5.0); Alkaline Phosphatase 67 U/L (38-126); Anion Gap 13 mmol/L; Blood Urea Nitrogen 13 mg/dL (7-17); Calcium 9.8 mg/dL (8.4-10.2); Carbon Dioxide 22 mmol/L (22-30); Chloride 110 mmol/L (98-107); Glucose 126 mg/dL (74-99); Sodium 145 mmol/L (137-145); Total Protein 7.7 g/dL (6.3-8.2)
[2018-07-05 21:16] LABS: Ammonia <9 umol/L (<30)
[2018-07-05] MEDS ORDERED: SODIUM CHLORIDE 0.9% 1,000 ML IV ONE (22:17)
[2018-07-05] MEDS ORDERED: ACETAMINOPHEN IV (For NPO) 1,000 MG in EMPTY BAG 1 BAG IVPB STA (22:18)
[2018-07-05] MEDS ORDERED: hydrALAZINE HCL 20 MG/ML 1 ML VIAL IVP STA (22:19)
[2018-07-05] MEDS: VITAMIN E (DL,TOCOPHERYL ACET) 400 UNIT CAP PO SCH (23:12)
[2018-07-06 02:00] LABS: Folate, Serum 18.2 ng/mL
[2018-07-06 02:03] LABS: Hemoglobin A1C 5.8 % (4.0-6.0)
[2018-07-06 07:52] LABS: Basophils % (A) 0 %; Eosinophils # (A) 0.1 k/uL (0-0.7); Eosinophils % (A) 1 %; HCT 39.4 % (34.0-46.0); HGB 12.6 gm/dL (11.4-16.0); Lymphocytes # (A) 1.1 k/uL (1.0-4.8); Lymphocytes % (A) 13 %; MCH 30.3 pg (25.0-35.0); MCV 94.9 fL (80.0-100.0); Mean Platelet Volume 7.3; Monocytes # (A) 0.4 k/uL (0-1.0); Monocytes % (A) 4 %; Neutrophils # (A) 7.4 k/uL (1.3-7.7); Neutrophils % (A) 82 %; Platelet Count 260 k/uL (150-450); RBC 4.15 m/uL (3.80-5.40); WBC 9.1 k/uL (3.8-10.6)
[2018-07-06 08:08] LABS: Calcium 8.8 mg/dL (8.4-10.2); Potassium 2.8 mmol/L (3.5-5.1)
[2018-07-06] MEDS ORDERED: LIDOCAINE 2% INJ 20 MG/ML (20 ML MDV) ONE (09:47)
--- NOTE | 2018-07-06 10:56 | P.PN ---
Subjective Progress Note Date: 07/06/18 Since last seen, patient continues to be confused. Patient's daughter and granddaughter were present today. They state that patient has been in distress, and apparently was not able to pass urine. After putting Foleys, 800 mL of urine came out. After that patient was more comfortable. Patient has been having apneic spells. She has been confused. However this morning she woke up and started talking. However she still confused, only 50% back to baseline. At baseline patient is very sharp person as per her daughter's statement. No pre- existing evidence of dementia. Patient has been having headache for a couple months. It involves back of the head in the front. Patient has some photophobi a. EEG was attempted, but patient and her daughter declined. They had ambulatory EEG performed by Dr. Dixon as an outpatient, which we will try to obtain the results. Patient's ABG showed pH 7.6, pCO2 19, probably from hyperventilation. Sodium is normal potassium 2.8 renal functions normal. Liver functions normal. WBC 9.1 hemoglobin 12.6. Ammonia is normal. B12 is 496. Folate 18.2, TSH and free T4 normal. Hemoglobin A1c 5.8. Objective - Vital Signs Vital signs: Vital Signs Temp 98.7 F 07/06/18 08:30 Pulse 76 07/06/18 08:30 Resp 19 07/06/18 08:30 BP 149/98 07/06/18 08:30 Pulse Ox 96 07/06/18 08:30 Intake & Output 07/05/18 07/06/18 07/06/18 18:59 06:59 18:59 Intake Total 0 Output Total 800 1200 Balance -800 -1200 Weight 45 kg Intake: Oral 0 Output: Urine 800 1200 Uretheral (Cordero) 200 Other: Voiding Method Indwelling Catheter Indwelling Catheter Indwelling Catheter # Voids 1 - Exam Patient is alert and awake, but very confused, holding a bucket in her hand and asking her daughter and granddaughter to hit on it. When I asked about the current date, patient states it's August 1930 which is her birthday. On asking what it is today, she states is the month of August, could not tell the year. She states it is spring season. She thinks Mr. Tellez is the president. She knows that she is in [facility] and name of her granddaughter Blanca. Speech is clear with no obvious aphasia or dysarthria. Patient is slightly diaphoretic, sweating on her forehead. Her muscle strength appears normal in the arms and legs. - Labs CBC & Chem 7: 07/06/18 07:09 07/06/18 07:09 Labs: Abnormal Lab Results - Last 24 Hours (Table) 07/05/18 07/05/18 07/05/18 Range/Units 20:28 20:34 20:47 ABG pH 7.60 H* (7.35-7.45) ABG pCO2 19 L* (35-45) mmHg ABG pO2 114 H (83-108) mmHg ABG HCO3 19 L (21-25) mmol/L ABG O2 Saturation 97.8 H (94-97) % Potassium (3.5-5.1) mmol/L Chloride 110 H (98-107) mmol/L Glucose 126 H (74-99) mg/dL POC Glucose (mg/dL) 105 H (75-99) mg/dL Plasma Lactic Acid Jourdan (0.7-2.0) mmol/L 07/05/18 07/06/18 Range/Units 20:47 07:09 ABG pH (7.35-7.45) ABG pCO2 (35-45) mmHg ABG pO2 (83-108) mmHg ABG HCO3 (21-25) mmol/L ABG O2 Saturation (94-97) % Potassium 2.8 L (3.5-5.1) mmol/L Chloride 113 H (98-107) mmol/L Glucose (74-99) mg/dL POC Glucose (mg/dL) (75-99) mg/dL Plasma Lactic Acid Jourdan 3.0 H* (0.7-2.0) mmol/L Assessment and Plan Assessment: * Altered mental status, possible toxic metabolic encephalopathy. CVA appears less likely. Exam is nonfocal. No obvious source found of acute mental status change. Patient also complaining of headache, therefore intracranial infection needs to be ruled out. * Dyskinesias/restlessness, unclear etiology possibly due to delirium. Plan: Carotid Doppler showed less than 50% stenosis in both ICAs. Antegrade flow in both vertebral arteries. EEG was attempted but patient and her family declined. We will try to obtain outpatient ambulatory EEG results. Patient not able to take aspirin due to aspirin ALLERGY. All blood tests normal including TSH, free T4, B12, folate, A1c. We will check lumbar puncture to rule out intracranial infection. Lumbar puncture was considered at bedside. Consent of pain from the daughters and patient's . However on examination it appears patient had previous back surgery in 2012 with a very long scar in the back. Patient also has scoliosis and patient is very restless, moving frequently, not cooperative, not laying still. These 3 factors makes bedside lumbar puncture almost impossible. We will have lumbar puncture performed under fluoroscopy. Discussed with Dr. Gilliland in detail. We will start thiamine 100 mg orally daily empirically. Discussed with family members in detail. We will follow clinically with you.
[2018-07-06] MEDS ORDERED: Potassium Replacement Protocol 1 EACH MISC MISCELLANE PRN (11:35)
--- NOTE | 2018-07-06 11:54 | P.PN ---
Subjective 87-year-old female brought in by the family members for change in mental status. At the time examination the patient is alert oriented 2. noticed that she was confused and felt sick to her stomach in the morning. also lives the patient was jerking Patient was thus brought to the ER. On 07/06/2018 Patient still confused She otherwise does not complain of any chest pain or racing heart, no cough no shortness breath, Belly belly is benign to my examination She is moving all 4 extremities without any focal weakness Objective - Vital Signs Vital signs: Vital Signs Temp 98.7 F 07/06/18 08:30 Pulse 76 07/06/18 08:30 Resp 19 07/06/18 08:30 BP 149/98 07/06/18 08:30 Pulse Ox 96 07/06/18 08:30 Intake & Output 07/05/18 07/06/18 07/06/18 18:59 06:59 18:59 Intake Total 0 Output Total 800 1200 Balance -800 -1200 Weight 45 kg Intake: Oral 0 Output: Urine 800 1200 Uretheral (Cordero) 200 Other: Voiding Method Indwelling Catheter Indwelling Catheter Indwelling Catheter # Voids 1 - Exam On exam, alert and oriented x2 she seems confused.. HEENT: Conjunctivae normal. eyes normal. NECK: No JVD. No thyroid enlargement. No LNs CARDIOVASCULAR: S1-S2 positive RESPIRATION: Breath sounds diminished in the bases. No rhonchi or crackles. No bronchial breathing. ABDOMEN: Soft, nontender . No guarding. no masses palpable. No ascites, No hepatosplenomegaly.Bowel sounds heard. LEGS: No edema. no swelling NERVOUS SYSTEM: Cranial N 2-12 grossly normal. Moves all 4 limbs. No focal deficits. No sensory deficit. Skin: no ulcer no rash - Labs CBC & Chem 7: 07/06/18 07:09 07/06/18 07:09 Labs: Abnormal Lab Results - Last 24 Hours (Table) 07/05/18 07/05/18 07/05/18 Range/Units 20:28 20:34 20:47 ABG pH 7.60 H* (7.35-7.45) ABG pCO2 19 L* (35-45) mmHg ABG pO2 114 H (83-108) mmHg ABG HCO3 19 L (21-25) mmol/L ABG O2 Saturation 97.8 H (94-97) % Potassium (3.5-5.1) mmol/L Chloride 110 H (98-107) mmol/L Glucose 126 H (74-99) mg/dL POC Glucose (mg/dL) 105 H (75-99) mg/dL Plasma Lactic Acid Jourdan (0.7-2.0) mmol/L 07/05/18 07/06/18 Range/Units 20:47 07:09 ABG pH (7.35-7.45) ABG pCO2 (35-45) mmHg ABG pO2 (83-108) mmHg ABG HCO3 (21-25) mmol/L ABG O2 Saturation (94-97) % Potassium 2.8 L (3.5-5.1) mmol/L Chloride 113 H (98-107) mmol/L Glucose (74-99) mg/dL POC Glucose (mg/dL) (75-99) mg/dL Plasma Lactic Acid Jourdan 3.0 H* (0.7-2.0) mmol/L Assessment and Plan Assessment: - Acute encephalopathy-need to rule out the cause - Bradycardia - Hypertension - History of asthma - History of CAD - History ARTHRITIS Plan - Neurology tried to do an LP. But it was a difficult procedure as the patient has scoliosis and scar petra from previous surgery - We'll consult IR for LP. We'll order for appropriate workup from the CSF fluid - Patient does not look infectious in does not look toxic. We'll order for extremity markers and order for blood cultures - Cardiology on board - Neurochecks every 4 hours - DVT and GI prophylaxis Time with Patient: Less than 30
[2018-07-06] MEDS: POTASSIUM CHLORIDE 20 MEQ in WATER FOR INJECTION 1 100ML.BAG IVPB SCH ×3 (13:50→17:58)
--- NOTE | 2018-07-06 13:58 | P.PN ---
Subjective Progress Note Date: 07/06/18 Principal diagnosis: Sinus bradycardia This is a 87-year-old female patient with no significant cardiac history who was brought by her family to the emergency room for further evaluation of change in mental status. The patient herself is very lethargic and sleepy and poor histo tonia. The history was taken from her was bedside. According to her , the patient normally is very independent. She was in her usual state of health that this brand communications manager when the patient woke up her from sleep and at that point he noticed that she was confused. The patient stated that she felt that she was sick to her stomach at that point. Because of that the patient was brought to the emergency room for further evaluation. No indication that the patient didn't have any symptoms of chest pain or chest discomfort, feeling of heart racing or fluttering, or loss of consciousness. Currently the patient is in process of having a work up by the neurology service. The EKG showed sinus rhythm with sinus bradycardia and nonspecific changes only. No clearcut ischemic ST or T-wave abnormalities noted. She underwent a CTA of the brain which also did not show any acute abnormalities. The chest x-ray did not show any acute abnormalities. We get involved in the c are of the patient for further evaluation of sinus bradycardia. The minimal heart rate the patient was in in the hospital was 60 beats per minutes. Currently she is not on any AV mercedes jovany agents. On follow-up with the patient today, July [id number], the patient seems to be confused. She is not having any chest pain or chest discomfort or shortness of breath. She underwent carotid duplex study which revealed intermediate bilateral disease. The TSH and free T4 came in to be within normal limits with the echocardiogram still pending. Objective - Vital Signs Vital signs: Vital Signs Temp 98.7 F 07/06/18 08:30 Pulse 76 07/06/18 08:30 Resp 19 07/06/18 08:30 BP 149/98 07/06/18 08:30 Pulse Ox 96 07/06/18 08:30 Intake & Output 07/05/18 07/06/18 07/06/18 18:59 06:59 18:59 Intake Total 0 Output Total 800 1200 Balance -800 -1200 Weight 45 kg 45 kg Intake: Oral 0 Output: Urine 800 1200 Uretheral (Cordero) 200 Other: Voiding Method Indwelling Catheter Indwelling Catheter Indwelling Catheter # Voids 1 # Bowel Movements 1 - Constitutional General appearance: Present: no acute distress - Respiratory Respiratory: bilateral: diminished - Cardiovascular Rhythm: regular - Labs CBC & Chem 7: 07/06/18 07:09 07/06/18 07:09 Labs: Abnormal Lab Results - Last 24 Hours (Table) 07/05/18 07/05/18 07/05/18 Range/Units 20:28 20:34 20:47 ABG pH 7.60 H* (7.35-7.45) ABG pCO2 19 L* (35-45) mmHg ABG pO2 114 H (83-108) mmHg ABG HCO3 19 L (21-25) mmol/L ABG O2 Saturation 97.8 H (94-97) % Potassium (3.5-5.1) mmol/L Chloride 110 H (98-107) mmol/L Glucose 126 H (74-99) mg/dL POC Glucose (mg/dL) 105 H (75-99) mg/dL Plasma Lactic Acid Jourdan (0.7-2.0) mmol/L 07/05/18 07/06/18 Range/Units 20:47 07:09 ABG pH (7.35-7.45) ABG pCO2 (35-45) mmHg ABG pO2 (83-108) mmHg ABG HCO3 (21-25) mmol/L ABG O2 Saturation (94-97) % Potassium 2.8 L (3.5-5.1) mmol/L Chloride 113 H (98-107) mmol/L Glucose (74-99) mg/dL POC Glucose (mg/dL) (75-99) mg/dL Plasma Lactic Acid Jourdan 3.0 H* (0.7-2.0) mmol/L Assessment and Plan Assessment: Assessment #1 change in mental status of unknown etiology #2 bradycardia with heart rate in the 50s #3 history of nephrectomy Plan #1 continue the current medical regimen #2 avoid any AV mercedes jovany agents #3 follow-up on the echocardiogram
[2018-07-06] MEDS: LORazepam 2 MG/ML INJ IV PRN (15:59)
[2018-07-06] MEDS: MULTIVITAMINS, THERA 1 EACH TAB PO SCH (16:08)
[2018-07-06] MEDS: THIAMINE 100 MG TAB PO SCH (16:10)
[2018-07-06] MEDS: VITAMIN E (DL,TOCOPHERYL ACET) 400 UNIT CAP PO SCH ×2 (16:10→21:22)
[2018-07-06] MEDS: LISINOPRIL 10 MG TAB PO SCH (17:11)
--- NOTE | 2018-07-06 17:33 | P.GSCN ---
History of Present Illness Consult date: 07/06/18 Reason for Consult: Urinary retention Requesting physician: Jeff Mack History of present illness: She is an 87 year old female who was brought by her family to the emergency room for evaluation of mental status changes. She was in her usual state of health yesterday when the patient was noted by her to be confused. She reported nausea and was brought to the ER. After admission, she experienced difficulty urinating and bladder pain. A Cordero catheter was placed, with return of 800 mL of urine. The catheter remains in place, and she is now asymptomatic. She is well-known to Dr. Rai. She has a history of chronic cystitis and incomplete bladder emptying. She had a CT scan that showed an atrophic left kidney with perhaps some stones in the ureter. She declines treatment in view of her age and the fact that she is asymptomatic. Review of Systems - Constitutional Denies chills, Denies fever - Gastrointestinal Reports nausea - Genitourinary Genitourinary: Denies dysuria, Denies hematuria - Neurological Reports confusion Past Medical History Past Medical History: Asthma, Osteoarthritis (OA) Additional Past Medical History / Comment(s): Spinal stenosis, scoliosis, chronic back pain radiates down L leg with numbness/burning sensation, born with single kidney, allery induced asthma. History of Any Multi-Drug Resistant Organisms: None Reported Past Surgical History: Adenoidectomy, Appendectomy, Back Surgery, Tonsillectomy Additional Past Surgical History / Comment(s): L5-S1 decompression lumbar giselle ectomy, bilateral cataract removal/lens implants, Past Anesthesia/Blood Transfusion Reactions: No Reported Reaction Smoking Status: Never smoker - Past Family History Father Family Medical History: Cancer Additional Family Medical History / Comment(s): Father had cancer-pt's spouse unsure what type. Mother Family Medical History: No Reported History Medications and Allergies Home Medications Medication Instructions Recorded Confirmed Type Levofloxacin [Levaquin] 500 mg PO DAILY 07/05/18 07/05/18 History Multivitamins, Thera [Multivitamin 1 tab PO DAILY 07/05/18 07/05/18 History (formulary)] Vitamin E (Dl,Tocopheryl Acet) 400 unit PO BID 07/05/18 07/05/18 History [Vitamin E] Allergies Allergy/AdvReac Type Severity Reaction Status Date / Time aspirin AdvReac Unknown Unknown Verified 07/05/18 07:19 Surgical - Exam Vital Signs Temp Pulse Resp BP Pulse Ox 97.4 F L 65 18 179/90 97 07/05/18 06:55 07/05/18 06:55 07/05/18 06:55 07/05/18 06:55 07/05/18 06:55 - General well developed, well nourished, no distress - Respiratory normal respiratory effort - Abdomen Abdomen: soft, non tender, no guarding, no rigid, no rebound - Psychiatric oriented to time, oriented to person, oriented to place, speech is normal, memory intact Results - Labs 07/06/18 07:09 07/06/18 07:09 Abnormal Lab Results - Last 24 Hours (Table) 07/05/18 07/05/18 07/05/18 Range/Units 20:28 20:34 20:47 ABG pH 7.60 H* (7.35-7.45) ABG pCO2 19 L* (35-45) mmHg ABG pO2 114 H (83-108) mmHg ABG HCO3 19 L (21-25) mmol/L ABG O2 Saturation 97.8 H (94-97) % Potassium (3.5-5.1) mmol/L Chloride 110 H (98-107) mmol/L Glucose 126 H (74-99) mg/dL POC Glucose (mg/dL) 105 H (75-99) mg/dL Plasma Lactic Acid Jourdan (0.7-2.0) mmol/L 07/05/18 07/06/18 Range/Units 20:47 07:09 ABG pH (7.35-7.45) ABG pCO2 (35-45) mmHg ABG pO2 (83-108) mmHg ABG HCO3 (21-25) mmol/L ABG O2 Saturation (94-97) % Potassium 2.8 L (3.5-5.1) mmol/L Chloride 113 H (98-107) mmol/L Glucose (74-99) mg/dL POC Glucose (mg/dL) (75-99) mg/dL Plasma Lactic Acid Jourdan 3.0 H* (0.7-2.0) mmol/L Diabetes panel 07/05/18 07/05/18 07/06/18 Range/Units 07:45 20:47 07:09 Sodium 145 145 (137-145) mmol/L Potassium 4.0 2.8 L (3.5-5.1) mmol/L Chloride 110 H 113 H (98-107) mmol/L Carbon Dioxide 22 23 (22-30) mmol/L BUN 13 15 (7-17) mg/dL Creatinine 0.65 0.70 (0.52-1.04) mg/dL Glucose 126 H 99 (74-99) mg/dL Hemoglobin A1c 5.8 (4.0-6.0) % Calcium 9.8 8.8 (8.4-10.2) mg/dL AST 27 (14-36) U/L ALT 21 (9-52) U/L Alkaline Phosphatase 67 (38-126) U/L Total Protein 7.7 (6.3-8.2) g/dL Albumin 4.6 (3.5-5.0) g/dL Thyroid panel 07/05/18 Range/Units 07:45 TSH 3.260 (0.465-4.680) mIU/L Calcium panel 07/05/18 07/06/18 Range/Units 20:47 07:09 Calcium 9.8 8.8 (8.4-10.2) mg/dL Albumin 4.6 (3.5-5.0) g/dL Pituitary panel 07/05/18 07/05/18 07/06/18 Range/Units 07:45 20:47 07:09 Sodium 145 145 (137-145) mmol/L Potassium 4.0 2.8 L (3.5-5.1) mmol/L Chloride 110 H 113 H (98-107) mmol/L Carbon Dioxide 22 23 (22-30) mmol/L BUN 13 15 (7-17) mg/dL Creatinine 0.65 0.70 (0.52-1.04) mg/dL Glucose 126 H 99 (74-99) mg/dL Calcium 9.8 8.8 (8.4-10.2) mg/dL TSH 3.260 (0.465-4.680) mIU/L Adrenal panel 07/05/18 07/06/18 Range/Units 20:47 07:09 Sodium 145 145 (137-145) mmol/L Potassium 4.0 2.8 L (3.5-5.1) mmol/L Chloride 110 H 113 H (98-107) mmol/L Carbon Dioxide 22 23 (22-30) mmol/L BUN 13 15 (7-17) mg/dL Creatinine 0.65 0.70 (0.52-1.04) mg/dL Glucose 126 H 99 (74-99) mg/dL Calcium 9.8 8.8 (8.4-10.2) mg/dL Total Bilirubin 1.0 (0.2-1.3) mg/dL AST 27 (14-36) U/L ALT 21 (9-52) U/L Alkaline Phosphatase 67 (38-126) U/L Total Protein 7.7 (6.3-8.2) g/dL Albumin 4.6 (3.5-5.0) g/dL Assessment and Plan (1) Retention of urine Current Visit: Yes Status: Acute Code(s): R33.9 - RETENTION OF URINE, UNSP ECIFIED SNOMED Code(s): 280598419 Plan: The patient is currently admitted with mental status changes. She has a history of incomplete bladder emptying and was found to be in urinary retention. A Cordero catheter was placed, with return of 800 mL of urine. The catheter is currently draining clear yellow urine, and she is asymptomatic. It would be my recommendation that the Cordero catheter remain in place for several days to regain bladder tone. The catheter may then be removed for a voiding trial. I will notify Dr. Rai of Mrs. Harvey's admission.
[2018-07-06] MEDS: SODIUM CHLORIDE 0.9% 1,000 ML IV SCH (17:59)
[2018-07-07] MEDS: SODIUM CHLORIDE 0.9% 1,000 ML IV SCH ×2 (00:50→17:13)
--- NOTE | 2018-07-07 07:29 | P.PN ---
Subjective Progress Note Date: 07/07/18 The patient is in the hospital as noted in Dr. Toledo's consult. She has chronic incomplete bladder emptying. SHe is in urine retention. When she is ambulatory and feeling better the catheter can be removed for a voiding trial. Objective - Vital Signs Vital signs: Vital Signs Temp 98.1 F 07/06/18 16:00 Pulse 77 07/06/18 16:00 Resp 18 07/06/18 16:00 BP 93/28 07/06/18 16:00 Pulse Ox 93 L 07/06/18 16:00 Intake & Output 07/06/18 07/07/18 07/07/18 18:59 06:59 18:59 Intake Total 805 Output Total 800 825 Balance 5 -825 Weight 45 kg 51.5 kg Intake: Intake, IV Titration 685 Amount Potassium Chloride 20 meq 200 In Water For Injection 1 100ml.bag @ 50 mls/hr IVPB Q2H [facility] Rx#: [id number] Sodium Chloride 0.9% 1, 485 000 ml @ 80 mls/hr IV . [id number] [facility] Rx#:[id number] Oral 120 Output: Urine 800 825 Other: Voiding Method Indwelling Catheter # Bowel Movements 1 - Labs CBC & Chem 7: 07/06/18 07:09 07/06/18 07:09 Labs: Abnormal Lab Results - Last 24 Hours (Table) 07/06/18 Range/Units 07:09 Potassium 2.8 L (3.5-5.1) mmol/L Chloride 113 H (98-107) mmol/L
--- NOTE | 2018-07-07 11:05 | P.PN ---
Subjective Progress Note Date: 07/07/18 Principal diagnosis: Sinus bradycardia This is a 87-year-old female patient with no significant cardiac history who was brought by her family to the emergency room for further evaluation of change in mental status. The patient herself is very lethargic and sleepy and poor histo tonia. The history was taken from her was bedside. According to her , the patient normally is very independent. She was in her usual state of health that this plant cytologist when the patient woke up her from sleep and at that point he noticed that she was confused. The patient stated that she felt that she was sick to her stomach at that point. Because of that the patient was brought to the emergency room for further evaluation. No indication that the patient didn't have any symptoms of chest pain or chest discomfort, feeling of heart racing or fluttering, or loss of consciousness. Currently the patient is in process of having a work up by the neurology service. The EKG showed sinus rhythm with sinus bradycardia and nonspecific changes only. No clearcut ischemic ST or T-wave abnormalities noted. She underwent a CTA of the brain which also did not show any acute abnormalities. The chest x-ray did not show any acute abnormalities. We get involved in the c are of the patient for further evaluation of sinus bradycardia. The minimal heart rate the patient was in in the hospital was 60 beats per minutes. Currently she is not on any AV mercedes jovany agents. On follow-up with the patient today, she remains asymptomatic from the cardiac standpoint. She remains confused and agitated. From the cardiovascular standpoint overview, I will follow-up with the patient on when necessary case. Objective - Vital Signs Vital signs: Vital Signs Temp 98.1 F 07/06/18 16:00 Pulse 77 07/06/18 16:00 Resp 18 07/06/18 16:00 BP 93/28 07/06/18 16:00 Pulse Ox 93 L 07/07/18 09:20 Intake & Output 07/06/18 07/07/18 07/07/18 18:59 06:59 18:59 Intake Total 805 Output Total 800 825 Balance 5 -825 Weight 45 kg 51.5 kg Intake: Intake, IV Titration 685 Amount Potassium Chloride 20 meq 200 In Water For Injection 1 100ml.bag @ 50 mls/hr IVPB Q2H [facility] Rx#: [id number] Sodium Chloride 0.9% 1, 485 000 ml @ 80 mls/hr IV . [id number] [facility] Rx#:[id number] Oral 120 Output: Urine 800 825 Other: Voiding Method Indwelling Catheter # Bowel Movements 1 1 - Constitutional General appearance: Present: no acute distress - Labs CBC & Chem 7: 07/06/18 07:09 07/06/18 07:09 Assessment and Plan Assessment: Assessment #1 change in mental status of unknown etiology #2 bradycardia with heart rate in the 50s #3 history of nephrectomy Plan #1 continue the current medical regimen #2 avoid any AV mercedes jovany agents #3 follow-up with the patient on when necessary case
--- NOTE | 2018-07-07 13:41 | P.PN ---
Subjective Progress Note Date: 07/07/18 Since last seen, patient today is very much calm, comfortable, normal affect, not restless. Patient is not hyperventilating anymore. Patient's family members were present including 2 of her daughters and her . Patient apparently underwent trial of lumbar puncture yesterday at radiology department, and it was unsuccessful. Patient was moving too much. Patient also had urinary retention. Urology is following. Patient's delirium has resolved. EEG was attempted, but patient and her daughter declined. They had ambulatory EEG performed by Dr. Dixon as an outpatient, which we will try to obtain the results. Patient's ABG showed pH 7.6, pCO2 19, probably from hyperventilation. Sodium is normal potassium 2.8 renal functions normal. Liver functions normal. WBC 9.1 hemoglobin 12.6. Ammonia is normal. B12 is 496. Folate 18.2, TSH and free T4 normal. Hemoglobin A1c 5.8. Objective - Vital Signs Vital signs: Vital Signs Temp 98.1 F 07/06/18 16:00 Pulse 77 07/06/18 16:00 Resp 18 07/06/18 16:00 BP 93/28 07/06/18 16:00 Pulse Ox 93 L 07/07/18 09:20 Intake & Output 07/06/18 07/07/18 07/07/18 18:59 06:59 18:59 Intake Total 805 Output Total 800 825 Balance 5 -825 Weight 45 kg 51.5 kg Intake: Intake, IV Titration 685 Amount Potassium Chloride 20 meq 200 In Water For Injection 1 100ml.bag @ 50 mls/hr IVPB Q2H [facility] Rx#: [id number] Sodium Chloride 0.9% 1, 485 000 ml @ 80 mls/hr IV . [id number] [facility] Rx#:[id number] Oral 120 Output: Urine 800 825 Other: Voiding Method Indwelling Catheter # Bowel Movements 1 1 - Exam Since last seen, patient today is very much calm, comfortable, normal affect, not restless. Patient is not hyperventilating anymore. Patient's family members were present including 2 of her daughters and her . Patient remembers me, but could not tell when she saw me last time. Patient moves all 4 extremities. Family informing me that patient is going home, waiting for only one physician to clear her. Detailed testing deferred. - Labs CBC & Chem 7: 07/06/18 07:09 07/06/18 07:09 Assessment and Plan Assessment: * Altered mental status, possible delirium, unclear cause. Uncertain if related to urinary retention. * Dyskinesias/restlessness, possibly due to delirium, resolved. Plan: Carotid Doppler showed less than 50% stenosis in both ICAs. Antegrade flow in both vertebral arteries. EEG was attempted but patient and her family declined. We will try to obtain outpatient ambulatory EEG results. Patient not able to take aspirin due to aspirin ALLERGY. All blood tests normal including TSH, free T4, B12, folate, A1c. Continue thiamine 100 mg orally daily empirically. Discussed with family members in detail. Patient for possible discharge today. Patient to follow up with her neurologist as an outpatient. We will follow clinically with you.
--- NOTE | 2018-07-07 13:46 | P.PN ---
Subjective 87-year-old female brought in by the family members for change in mental status. At the time examination the patient is alert oriented 2. noticed that she was confused and felt sick to her stomach in the morning. also lives the patient was jerking Patient was thus brought to the ER. On 07/06/2018 Patient still confused She otherwise does not complain of any chest pain or racing heart, no cough no shortness breath, Belly belly is benign to my examination She is moving all 4 extremities without any focal weakness 07/07/2018 Patient is alert oriented 3 Patient has excruciating pain in her left knee not able to bear weight on the left knee No chest pain or racing heart No cough no shortness of breath No fever no chills Objective - Vital Signs Vital signs: Vital Signs Temp 98.1 F 07/06/18 16:00 Pulse 77 07/06/18 16:00 Resp 18 07/06/18 16:00 BP 93/28 07/06/18 16:00 Pulse Ox 93 L 07/07/18 09:20 Intake & Output 07/06/18 07/07/18 07/07/18 18:59 06:59 18:59 Intake Total 805 Output Total 800 825 Balance 5 -825 Weight 45 kg 51.5 kg Intake: Intake, IV Titration 685 Amount Potassium Chloride 20 meq 200 In Water For Injection 1 100ml.bag @ 50 mls/hr IVPB Q2H [facility] Rx#: [id number] Sodium Chloride 0.9% 1, 485 000 ml @ 80 mls/hr IV . [id number] [facility] Rx#:[id number] Oral 120 Output: Urine 800 825 Other: Voiding Method Indwelling Catheter # Bowel Movements 1 1 - Exam On exam, alert and oriented x3 HEENT: Conjunctivae normal. eyes normal. NECK: No JVD. No thyroid enlargement. No LNs CARDIOVASCULAR: S1-S2 positive RESPIRATION: Breath sounds diminished in the bases. No rhonchi or crackles. No bronchial breathing. ABDOMEN: Soft, nontender . No guarding. no masses palpable. No ascites, No hepatosplenomegaly.Bowel sounds heard. LEGS: No edema. no swelling . Left knee is more swollen than the right. She has pain in the left knee. NERVOUS SYSTEM: Cranial N 2-12 grossly normal. Moves all 4 limbs. No focal deficits. No sensory deficit. Skin: no ulcer no rash - Labs CBC & Chem 7: 07/06/18 07:09 07/06/18 07:09 Assessment and Plan Assessment: - Acute encephalopathy-need to rule out the cause - Bradycardia - Pain in the left knee - Hypertension - History of asthma - History of CAD - History ARTHRITIS Plan - Patient is alert oriented 3 - She wants to go home but she's not able to bear weight and her left leg because of extrusion pain in her left knee. - We'll get a stat x-ray to see was going on - It has no overlying erythema no warmth, the patient has no fever. Vital signs are okay. No suspicion of any infectious processes no known. It looks more like arthritis or any injury due to the fall - We'll continue home medications - We'll follow up - Patient will need PTOT and possible rehab if x-ray is negative
[2018-07-07 14:29] LABS: African American GFR (CKD) >90 (>60 ml/min/1.73 sqM); Anion Gap 8 mmol/L; Blood Urea Nitrogen 12 mg/dL (7-17); Calcium 9.1 mg/dL (8.4-10.2); Carbon Dioxide 22 mmol/L (22-30); Chloride 107 mmol/L (98-107); Glucose 102 mg/dL (74-99); Potassium 3.1 mmol/L (3.5-5.1); Sodium 137 mmol/L (137-145)
--- NOTE | 2018-07-07 14:29 | XR ---
EXAMINATION TYPE: XR knee complete LT DATE OF EXAM: 07/07/2018 COMPARISON: [facility] radiographs 03/26/2010 HISTORY: 87-year-old female with left knee pain TECHNIQUE: 3 views FINDINGS: Large knee joint effusion having mass effect on the quadriceps tendon. Degenerative change at the pat ellofemoral compartment with irregularity of subchondral bony articular surface. Additional degenerat rasheed spurring at the medial compartment. No discrete fracture line is identified. IMPRESSION: Large knee joint effusion. Correlate as to possible etiology. Internal derangement not excluded. Ther e is underlying OA involving the patellofemoral compartment. No discrete fracture lucency is seen. MR I to further evaluate as indicated.
[2018-07-07] MEDS: VITAMIN E (DL,TOCOPHERYL ACET) 400 UNIT CAP PO SCH ×2 (17:11→19:50)
[2018-07-07] MEDS: THIAMINE 100 MG TAB PO SCH (17:11)
[2018-07-07] MEDS: LISINOPRIL 10 MG TAB PO SCH (17:11)
[2018-07-07] MEDS: MULTIVITAMINS, THERA 1 EACH TAB PO SCH (17:11)
[2018-07-07 21:51] LABS: Appearance,BF Cloudy; Color,BF Yellow; Nucleated Cells, Body Fluid 35750 /uL; RBC, Body Fluid 825 /uL
[2018-07-07 21:52] LABS: Mononuclear WBC,Body Fluid 8 %; Polynuclear WBC,Body Fluid 92 %; Total Cells Counted,Body Fluid 100
--- NOTE | 2018-07-07 22:16 | CONS ---
CONSULTATION DATE OF CONSULTATION: 07/07/2018. REASON FOR CONSULTATION: Left knee effusion. HISTORY: Lianna is a very pleasant 87-year-old female. She had a syncopal episode at home on and was then admitted to the hospital here. Her daughter was at the bedside as well. A lot of the history was derived from her daughter. Lianna, however, was alert and seemingly oriented when I saw her. They are unsure when the effusion in her left knee started. This has gotten quite painful today. We were consulted for evaluation of potential septic arthritic knee. PHYSICAL EXAMINATION: On exam, I saw her at the bedside today. She is resting relatively comfortably. She did have a large effusion in the left knee. She has no complaints of any pain in any other long joints or joints in her body. The left knee has a large effusion. There is no evidence of trauma. There is no erythema or fluctuance noted about the knee. It is very tender to palpation. She has pain with any attempted range of motion of the knee. Her neurovascular exam distally in the foot is normal. X-RAYS: Views of the left knee which were done today were reviewed. There is no evidence of fracture. She has some early arthritic change in the medial compartment and patellofemoral compartment knee, but otherwise normal x-ray. LABORATORIES: Labs done today, white count 9.1, hemoglobin 12.6, platelets of 260. Blood cultures have been taken and are so far negative. IMPRESSION: Left knee effusion. RECOMMENDATION: She did have a very large tense effusion of the left knee. My recommendation was for aspiration at the bedside tonight. Lianna and her daughter agreed. I then proceed to perform a bedside aspiration with the assistance of the floor nurse. The superior lateral aspect of the knee was prepped with alcohol. I then was able to aspirate approximately 40 mL of cloudy synovial fluid without much difficulty. The fluid was then sent for cell count, culture, crystals, and Gram stain. We also sent a separate culture as well. The tap was without incident. We will follow. We did send the fluid stat. If it is indeed infected, we will plan for operative irrigation and debridement of her knee tomorrow morning. We will keep her n.p.o. after midnight tonight. This would be an arthroscopic irrigation and debridement of the knee if we do indeed proceed to surgery tomorrow. All of Lianna and her daughter's questions were answered to her satisfaction. We will await the fluid analysis before definitively proceeding with any further treatment for the knee. MMJUSTAL / IJN: [id number] /
[2018-07-08] MEDS: POTASSIUM CHLORIDE ER 20 MEQ TAB.ER PO SCH ×2 (04:01→05:31)
[2018-07-08 06:48] LABS: HCT 38.1 % (34.0-46.0); HGB 12.2 gm/dL (11.4-16.0); MCH 30.1 pg (25.0-35.0); MCHC 31.9 g/dL (31.0-37.0); MCV 94.4 fL (80.0-100.0); Platelet Count 248 k/uL (150-450); RBC 4.04 m/uL (3.80-5.40); RDW 13.1 % (11.5-15.5); WBC 9.3 k/uL (3.8-10.6)
[2018-07-08 06:56] LABS: African American GFR (CKD) >90 (>60 ml/min/1.73 sqM); Anion Gap 6 mmol/L; Blood Urea Nitrogen 10 mg/dL (7-17); Calcium 8.9 mg/dL (8.4-10.2); Carbon Dioxide 23 mmol/L (22-30); Chloride 110 mmol/L (98-107); Glucose 100 mg/dL (74-99); Potassium 3.5 mmol/L (3.5-5.1); Sodium 139 mmol/L (137-145)
[2018-07-08] MEDS: SODIUM CHLORIDE 0.9% 1,000 ML IV SCH ×2 (08:07→12:54)
[2018-07-08] MEDS: THIAMINE 100 MG TAB PO SCH (08:11)
[2018-07-08] MEDS: VITAMIN E (DL,TOCOPHERYL ACET) 400 UNIT CAP PO SCH ×2 (08:11→20:20)
[2018-07-08] MEDS: MULTIVITAMINS, THERA 1 EACH TAB PO SCH (08:11)
[2018-07-08] MEDS: LISINOPRIL 10 MG TAB PO SCH (08:11)
[2018-07-08] MEDS ORDERED: HEPARIN SODIUM,PORCINE 5,000 UNIT/ML 1 ML VIAL IV PRN (10:21)
[2018-07-08] MEDS ORDERED: HEPARIN SOD,PORK IN 0.45% NACL 25,000 UNIT in 0.45% NACL 1 250ML.BAG IV SCH (10:30)
--- NOTE | 2018-07-08 10:36 | PN ---
PROGRESS NOTE DATE OF VISIT: 07/08/2018. Lianna is resting comfortably at the bedside today. I did aspirate her knee last night. She had a cloudy synovial fluid. The nucleated cells came back 35,750 with 92% polynuclear white blood cells. Unfortunately the crystal analysis has not come back as this may be consistent with gout. She is feeling a little better since the aspiration last night. She denies any fevers, chills. She is afebrile and her vital signs are stable. On examination of the knee, it is essentially unchanged from last night. She has a moderate to large effusion of the left knee. No erythema or fluctuance. She also has a mild effusion of the right knee as well. This knee is much less painful with range of motion on the left. IMPRESSION: Septic arthritis of the left knee versus gouty intra-articular gout of the left knee. RECOMMENDATIONS: Lianna has been n.p.o. after midnight last night. We will proceed forward on the assumption that this is an infection. However, it certainly could be a gout exacerbation. 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 We will reaspirate in the operating room prior to irrigation and debridement of the knee. I will also plan to aspirate the right knee in the operating room, as well as and send that fluid off for analysis as well. I did discuss with Lianna and her sister the plan. The plan will be for arthroscopic irrigation and debridement of the left knee. We will certainly send more fluid analysis at the time of surgery. We likely will consult Infectious Disease postoperatively. It is quite unusual for her to developed a spontaneous infection in the left knee. We will ask Infectious Disease for assistance with that. All of Lianna and her sister's questions were answered to their satisfaction. The risks of the procedure were discussed in detail as well. The risks include, but are not limited to risk of infection, continued infection, nerve damage with blood vessel injury, and a small risk of deep vein thrombosis which could lead to fatal pulmonary embolism. All of their questions with regard to the risks of procedure were answered to her satisfaction and appropriate informed consent was obtained. We planned to proceed with arthroscopic irrigation, and debridement of Lianna's left knee this morning. MMODL / IJN: [id number] /
[2018-07-08] MEDS ORDERED: IV FLUID CONTINUATION 1,000 ML IV ONE (10:52)
[2018-07-08 10:53] LABS: Basophils % (A) 0 %; Eosinophils # (A) 0.2 k/uL (0-0.7); Eosinophils % (A) 2 %; HCT 39.9 % (34.0-46.0); HGB 12.9 gm/dL (11.4-16.0); Lymphocytes # (A) 1.9 k/uL (1.0-4.8); Lymphocytes % (A) 19 %; MCH 30.5 pg (25.0-35.0); MCHC 32.2 g/dL (31.0-37.0); MCV 94.7 fL (80.0-100.0); Mean Platelet Volume 7.1; Monocytes # (A) 0.5 k/uL (0-1.0); Monocytes % (A) 5 %; Neutrophils # (A) 7.1 k/uL (1.3-7.7); Neutrophils % (A) 71 %; Platelet Count 248 k/uL (150-450); RBC 4.22 m/uL (3.80-5.40); RDW 13.3 % (11.5-15.5)
[2018-07-08 10:56] LABS: Partial Thromboplastin Time 24.4 sec (22.0-30.0); Prothrombin Time 10.5 sec (9.0-12.0)
[2018-07-08] MEDS ORDERED: ONDANSETRON 4 MG/2 ML VIAL IVP ONE (11:03)
[2018-07-08] MEDS ORDERED: PROPOFOL 10 MG/ML 20 ML VIAL IV ONE (11:47)
[2018-07-08] MEDS ORDERED: fentaNYL (PF) 50 MCG/ML 2 ML AMP ONE (11:47)
[2018-07-08] MEDS ORDERED: SODIUM CHLORIDE 0.9% IV ONE ×2 (12:00)
[2018-07-08] MEDS ORDERED: CEFAZOLIN IV ONE ×2 (12:00)
[2018-07-08] MEDS ORDERED: VANCOMYCIN IV PER PHARMACY 1 EACH MISC MISCELLANE PRN (12:54)
[2018-07-08] MEDS: CEFEPIME 2 GM in SODIUM CHLORIDE 0.9% 100 ML IVPB SCH ×2 (13:42→21:49)
[2018-07-08] MEDS ORDERED: VANCOMYCIN 750 MG in SODIUM CHLORIDE 0.9% 250 ML IVPB ONE (14:00)
[2018-07-08 14:20] LABS: Appearance,BF Hazy; Color,BF Yellow; Nucleated Cells, Body Fluid 2850 /uL; RBC, Body Fluid 1250 /uL
[2018-07-08 14:22] LABS: Mononuclear WBC,Body Fluid 29 %; Polynuclear WBC,Body Fluid 71 %; Total Cells Counted,Body Fluid 100
[2018-07-08 14:25] LABS: Appearance,BF Hazy; Color,BF Yellow; Nucleated Cells, Body Fluid 13850 /uL; RBC, Body Fluid 2800 /uL
[2018-07-08 14:26] LABS: Mononuclear WBC,Body Fluid 26 %; Polynuclear WBC,Body Fluid 74 %; Total Cells Counted,Body Fluid 100
[2018-07-08] MEDS: traMADol 50 MG TAB PO PRN ×2 (14:50→21:00)
--- NOTE | 2018-07-08 15:52 | P.PN ---
Subjective Progress Note Date: 07/08/18 Since last seen, patient today is very much calm, comfortable, normal affect, not restless. Per family members, she is mentally back to baseline. Patient's 2 daughters and were present today also. Patient apparently had a large effusion of the right knee. Patient underwent drainage of the left knee joint effusion. I reviewed the results. Gram stain so far negative. EEG was attempted, but patient and her daughter declined. They had ambulatory EEG performed by Dr. Dixon as an outpatient, which we will try to obtain the results. Patient's ABG showed pH 7.6, pCO2 19, probably from hyperventilation. Sodium is normal potassium 2.8 renal functions normal. Liver functions normal. WBC 9.1 hemoglobin 12.6. Ammonia is normal. B12 is 496. Folate 18.2, TSH and free T4 normal. Hemoglobin A1c 5.8. Objective - Vital Signs Vital signs: Vital Signs Temp 96.9 F L 07/08/18 12:34 Pulse 97 07/08/18 14:57 Resp 16 07/08/18 14:57 BP 165/80 07/08/18 14:57 Pulse Ox 96 07/08/18 13:02 Intake & Output 07/07/18 07/08/18 07/08/18 18:59 06:59 18:59 Intake Total 320 850 Output Total 275 1630 Balance 45 -780 Weight 45 kg Intake: IV 320 850 Sodium Chloride 0.9% 1, 320 000 ml @ 80 mls/hr IV . [id number] [facility] Rx#:[id number] Output: Urine 275 1625 Uretheral (Cordero) 275 Estimated Blood Loss 5 Other: Voiding Method Indwelling Catheter Indwelling Catheter # Voids 1 1 # Bowel Movements 1 - Exam Since last seen, patient today is very much calm, comfortable, normal affect, not restless. Patient is not hyperventilating anymore. Patient's family members were present including 2 of her daughters and her . Patient states her right knee joint is very tender. - Labs CBC & Chem 7: 07/08/18 10:31 07/08/18 06:29 Labs: Abnormal Lab Results - Last 24 Hours (Table) 07/08/18 Range/Units 06:29 Chloride 110 H (98-107) mmol/L Glucose 100 H (74-99) mg/dL Microbiology - Last 24 Hours (Table) 07/06/18 12:14 Blood Culture - Preliminary Blood No Growth after 48 hours 07/06/18 12:05 Blood Culture - Preliminary Blood No Growth after 48 hours 07/07/18 20:54 Gram Stain - Preliminary Knee - Left Body Fluid Culture - Preliminary Assessment and Plan Assessment: * Acute delirium, now resolved. Possible due to left knee pain/effusion or related to urinary retention. * Dyskinesias/restlessness, possibly due to delirium, also has completely resolved. Plan: Patient's mental status is back to baseline. She has left knee effusion, which has been aspirated. Neurologically patient is stable. Carotid Doppler showed less than 50% stenosis in both ICAs. Antegrade flow in both vertebral arteries. EEG was attempted but patient and her family declined. We will try to obtain outpatient ambulatory EEG results. Patient not able to take aspirin due to aspirin ALLERGY. All blood tests normal including TSH, free T4, B12, folate, A1c. Continue thiamine 100 mg orally daily empirically. Your medical management for joint effusion, rule out gout versus septic arthritis Discussed with family members in detail. We will sign off.
--- NOTE | 2018-07-08 22:45 | P.CONS ---
History of Present Illness - Reason for Consult Consult date: 07/08/18 Left knee septic arthritis Requesting physician: Michel Gilliland - Chief Complaint Left knee pain and cloudy fluid x 1 days - History of Present Illness Patient is 87 year old female who was brought into the ER by EMS after apparently the patient was noticed to be less responsive and tremulous while on the toilet seat with concern for possible seizure activity, this patient subsequently has been worked up by neurology and cardiology services patient has no fever during this admission or elevated white count patient apparently was complaining of some pain to the left knee area with no history of any trauma no wound or significant swelling or redness patient describes the pain to be more of a dull aching about 7 out of 10 and no radiation patient was evaluated by orthopedics yesterday she did have aspirate of the left knee which was found to be cloudy with more than 37,000, white cells predominantly PMNs with concern for possible septic arthritis patient was taken to the OR today status post left knee washout and aspirate of the right knee the patient has been empirically started on vancomycin and cefepime infectious disease was consulted for further recommendation regarding antibiotic therapy Review of Systems CONSTITUTIONAL: Positive for weakness. No Fever EYES: No complaint. ENT:No complaint. RESPIRATORY: Shortness of breath. CARDIOVASCULAR: No chest pain. GENITOURINARY: No complaint. GASTROINTESTINAL: No complaint. MUSCULOSKELETAL: As per history of present illness. INTEGUMENTARY: No complaint. PSYCHOLOGICAL: No complaint. ENDOCRINE: No complaint. NEUROLOGIC: As per history of present illness. Past Medical History Past Medical History: Asthma, Osteoarthritis (OA) Additional Past Medical History / Comment(s): Spinal stenosis, scoliosis, chronic back pain radiates down L leg with numbness/burning sensation, born with single kidney, allery induced asthma. History of Any Multi-Drug Resistant Organisms: None Reported Past Surgical History: Adenoidectomy, Appendectomy, Back Surgery, Tonsillectomy Additional Past Surgical History / Comment(s): L5-S1 decompression lumbar laminectomy, bilateral cataract removal/lens implants, Past Anesthesia/Blood Transfusion Reactions: No Reported Reaction Smoking Status: Never smoker - Past Family History Father Family Medical History: Cancer Additional Family Medical History / Comment(s): Father had cancer-pt's spouse unsure what type. Mother Family Medical History: No Reported History Medications and Allergies Home Medications Medication Instructions Recorded Confirmed Type Levofloxacin [Levaquin] 500 mg PO DAILY 07/05/18 07/05/18 History Multivitamins, Thera [Multivitamin 1 tab PO DAILY 07/05/18 07/05/18 History (formulary)] Vitamin E (Dl,Tocopheryl Acet) 400 unit PO BID 07/05/18 07/05/18 History [Vitamin E] Allergies Allergy/AdvReac Type Severity Reaction Status Date / Time aspirin AdvReac Unknown Unknown Verified 07/05/18 07:19 Physical Exam Vitals: Vital Signs Temp Pulse Pulse Resp BP BP Pulse Ox 07/08/18 12:45 77 16 167/72 98 07/08/18 12:34 96.9 F L 76 20 172/74 95 07/08/18 08:00 97.8 F 76 16 146/99 91 L 07/08/18 04:00 97.6 F 78 16 141/77 94 L 07/08/18 00:00 97.3 F L 76 16 119/61 93 L 07/07/18 19:55 98.4 F 76 16 154/72 93 L 07/07/18 17:17 96 16 152/85 93 L Intake and Output 07/07/18 07/08/18 07/08/18 22:59 06:59 14:59 Intake Total 320 850 Output Total 275 1630 Balance -275 320 -780 Intake: IV 320 850 Sodium Chloride 0.9% 1, 320 000 ml @ 80 mls/hr IV . [id number] [facility] Rx#:[id number] Output: Urine 275 1625 Uretheral (Cordero) 275 Estimated Blood Loss 5 Other: Voiding Method Indwelling Catheter Indwelling Catheter Indwelling Catheter # Voids 1 1 Weight 45 kg GENERAL DESCRIPTION: An elderly female lying in bed, no distress. No tachypnea or accessory muscle of respiration use. HEENT: Shows Pallor , no scleral icterus. Oral mucous membrane is dry. No pharyngeal erythema or thrush NECK: Trachea central, no thyromegaly. LUNGS: Unlabored breathing. Clear to auscultation anteriorly. No wheeze or crackle. HEART: S1, S2, regular rate and rhythm. No loud murmur ABDOMEN: Soft, no tenderness , guarding or rigidity, no organomegaly EXTREMITIES: No edema of feet. Left knee is currently dressed up post surgery with drainage on the dressing SKIN: No rash, no masses palpable. NEUROLOGICAL: The patient is awake, alert, oriented x3, mood and affect normal. Results CBC & Chem 7: 07/08/18 10:31 07/08/18 06:29 Labs: Abnormal Lab Results - Last 24 Hours (Table) 07/07/18 07/08/18 Range/Units 13:58 06:29 Potassium 3.1 L (3.5-5.1) mmol/L Chloride 110 H (98-107) mmol/L Glucose 102 H 100 H (74-99) mg/dL Microbiology - Last 24 Hours (Table) 07/07/18 20:54 Body Fluid Culture - Preliminary Knee - Left 07/06/18 12:14 Blood Culture - Preliminary Blood No Growth after 24 hours 07/06/18 12:05 Blood Culture - Preliminary Blood No Growth after 24 hours Assessment and Plan Assessment: 1-patient was hospitalized with possible syncope and mental status changes this patient with no fever or elevated white count no history of any trauma to the left knee or history of gout with complaint of left knee. Status post left knee aspirate which was cloudy with about 37,000 WBC predominantly PMNs could be gouty arthritis as the crystals are currently pending less likely to be septic a rthritis in view of no fever or elevated white count but not entirely excluded Plan: 1- we will wait for the Gram stain as well as crystals studies on the left knee aspirate. 2-patient will be empirically treated with cefepime 2 g every 12 hours and vancomycin pharmacy to dose while watching her Vanco trough and kidney function closely 3-if the crystals studies come back suggestive of crystal arthritis antibiotic can be safely discontinued We will follow-up on clinical condition and cultures to further adjust medication if needed Thank you for this consultation will follow this patient along with you Multiple family member at the bedside questions and concerns were answered Time with Patient: Greater than 30
[2018-07-09] MEDS: SODIUM CHLORIDE 0.9% 1,000 ML IV SCH ×2 (01:37→10:50)
[2018-07-09] MEDS: CEFEPIME 2 GM in SODIUM CHLORIDE 0.9% 100 ML IVPB SCH ×3 (05:30→23:40)
[2018-07-09] MEDS: traMADol 50 MG TAB PO PRN (05:30)
[2018-07-09] MEDS ORDERED: VANCOMYCIN 750 MG in SODIUM CHLORIDE 0.9% 250 ML IVPB SCH (06:00)
[2018-07-09 06:38] LABS: Basophils % (A) 1 %; Eosinophils # (A) 0.3 k/uL (0-0.7); Eosinophils % (A) 3 %; HGB 11.4 gm/dL (11.4-16.0); Lymphocytes # (A) 1.7 k/uL (1.0-4.8); Lymphocytes % (A) 22 %; MCH 31.9 pg (25.0-35.0); MCHC 32.7 g/dL (31.0-37.0); MCV 97.6 fL (80.0-100.0); Mean Platelet Volume 7.4; Monocytes # (A) 0.5 k/uL (0-1.0); Monocytes % (A) 6 %; Neutrophils # (A) 5.4 k/uL (1.3-7.7); Neutrophils % (A) 67 %; Platelet Count 211 k/uL (150-450); RBC 3.59 m/uL (3.80-5.40); RDW 13.5 % (11.5-15.5)
[2018-07-09 06:46] LABS: Calcium 8.3 mg/dL (8.4-10.2); Potassium 3.5 mmol/L (3.5-5.1)
[2018-07-09] MEDS: VITAMIN E (DL,TOCOPHERYL ACET) 400 UNIT CAP PO SCH ×2 (08:22→20:12)
[2018-07-09] MEDS: LISINOPRIL 10 MG TAB PO SCH (08:22)
[2018-07-09] MEDS: MULTIVITAMINS, THERA 1 EACH TAB PO SCH (08:22)
[2018-07-09] MEDS: THIAMINE 100 MG TAB PO SCH (08:22)
--- NOTE | 2018-07-09 08:57 | CDI ---
Documentation Clarification Form Date: 07/09/2018 8:46:00 AM From: Madison SaldivarSaenzKENAN cameron, CCDS Admit Date: 07/05/2018 9:41:00 AM Patient Name: Lianna Caruso Visit Number: [id number] Discharge Date: ATTENTION: The Clinical Documentation Specialists (CDI) and [facility] Coding Staff appreciate your assistance in clarifying documentation. Please respond to the clarification below the line at the bottom and electronically sign. The CDI & [facility] Coding staff will review the response and follow-up if needed. Please note: Queries are made part of the Legal Health Record. If you have any questions, please contact the author of this message via ITS. Dr. Jeff Mack: Per the 07/05 neurology consult: "Altered mental status, possible toxic metabolic encephalopathy." Per the 07/06 & 07/07 progress notes: "Acute encephalopathy-need to rule out the cause." History/Risk Factors: Osteoarthritis, Spinal stenosis w/chronic back pain radiates down left leg with numbness, born with single kidney & allergy induced asthma. Clinical Indicators: Presented from home with altered mental status & tremorous motions, family concerned for seizures. VS: T 97.4*, P 65, R 18 - 25^, BP 179/90^, PO 97 RA Labs: pH 7.60^^, pCO2 19; K 3.4*, Glucose 101^. UA: clear, negative nitrite, WBC 6. Stool occult blood: negative. EKG: R 54 sinus bradycardia w/1st degree AV block RAD: Carotid Doppler: <50% stenosis bilateral internal carotid arteries, 50-70% stenosis left external carotid artery. Treatment: IV fluid bolus x2, IV fluid rate 75, IV Ativan x2, IV Narcan, IV Lasix, IV Tylenol, IV Apresoline Consults: Urology (urinary retention), Neurology (possible seizures & altered mental status), Orthopedics (left knee effusion) In your professional opinion, can you please clarify the specific type of Encephalopathy, if known? Hypertensive Encephalopathy Metabolic Encephalopathy Septic Encephalopathy, specify source of infection if known Toxic Encephalopathy, specify drug or specific agent if known Other encephalopathy, please specify Unable to determine (Last Revision: May 2017) MTDD
--- NOTE | 2018-07-09 09:07 | CDI ---
Documentation Clarification Form Date: 07/09/2018 9:00:35 AM From: Madison SaldivarSaenzKENAN cameron, CCDS Admit Date: 07/05/2018 9:41:00 AM Patient Name: Lianna Caruso Visit Number: [id number] Discharge Date: ATTENTION: The Clinical Documentation Specialists (CDI) and [facility] Coding Staff appreciate your assistance in clarifying documentation. Please respond to the clarification below the line at the bottom and electronically sign. The CDI & [facility] Coding staff will review the response and follow-up if needed. Please note: Queries are made part of the Legal Health Record. If you have any questions, please contact the author of this message via ITS. Dr. Jeff Mack: Per the 07/05 History & Physical: patient was found in the bathroom sitting on the toilet with some tremorous motion, family concerned with seizures. Patient was noted to be hypertension, Lisinopril started. History/Risk Factors: Osteoarthritis, Spinal stenosis w/chronic back pain radiates down left leg with numbness, born with single kidney & allergy induced asthma. Clinical Indicators: Presented from home with altered mental status & tremorous motions, family concerned for seizures. Encephalopathy, dehydration & bradycardia also noted, did not appear to be septic. VS: T 97.4*, P 65, R 18 - 25^, BP 179/90^, PO 97 RA Labs: pH 7.60^^, pCO2 19; K 3.4*, Glucose 101^. UA: clear, negative nitrite, WBC 6. Stool occult blood: negative. EKG: R 54 sinus bradycardia w/1st degree AV block RAD: Carotid Doppler: <50% stenosis bilateral internal carotid arteries, 50-70% stenosis left external carotid artery. Treatment: IV fluid bolus x2, IV fluid rate 75, IV Ativan x2, IV Narcan, IV Lasix, IV Tylenol, IV Apresoline Consults: Urology (urinary retention), Neurology (possible seizures & altered mental status), Orthopedics (left knee effusion) In your professional opinion, can you please clarify the specific type of hypertension, if known? Hypertensive Emergency Hypertensive Urgency Other hypertensive, please specify Unable to determine (Last Revision: May 2017) MTDD
--- NOTE | 2018-07-09 12:06 | P.PN ---
Subjective Patient resting in bed of pain under control. Patient awake and alert much improved from admitting mental status changes. Awaiting consultation on discharge from infectious disease and orthopedics regarding the left knee effusion. We will attempt to remove the Cordero catheter to see if she can urinate on her own without it. We'll need to be reinserted if patient unable to void. Discussed at length with the daughter regarding plans and treatment here in the hospital Objective - Vital Signs Vital signs: Vital Signs Temp 98.2 F 07/09/18 11:01 Pulse 117 H 07/09/18 11:01 Resp 20 07/09/18 11:01 BP 196/91 07/09/18 11:01 Pulse Ox 96 07/09/18 11:01 Intake & Output 07/08/18 07/09/18 07/09/18 18:59 06:59 18:59 Intake Total 950 1880 240 Output Total 1880 500 750 Balance -930 1380 -510 Weight 61 kg Intake: IV 850 880 Sodium Chloride 0.9% 1, 880 000 ml @ 80 mls/hr IV . [id number] [facility] Rx#:[id number] Intake, IV Titration 200 Amount Cefepime 2 gm In Sodium 200 Chloride 0.9% 100 ml @ 200 mls/hr IVPB Q8H [facility] Rx#:[id number] Oral 100 800 240 Output: Urine 1875 500 750 Estimated Blood Loss 5 Other: Voiding Method Indwelling Catheter Indwelling Catheter Indwelling Catheter # Voids 1 # Bowel Movements 0 - Constitutional General appearance: Present: mild distress - EENT Eyes: Present: PERRLA Ears: bilateral: normal - Neck Neck: Present: normal ROM - Respiratory Respiratory: bilateral: CTA - Cardiovascular Rhythm: regular - Gastrointestinal General gastrointestinal: Present: soft - Genitourinary Genitourinary Comment(s): Patient has Cordero catheter - Integumentary Integumentary: Present: normal - Neurologic Neurologic: Present: CNII-XII intact - Musculoskeletal Musculoskeletal Comment(s): Left knee continues to have the swelling and warm to touch Musculoskeletal: Present: generalized weakness - Psychiatric Psychiatric: Present: A&O x's 3, appropriate affect, intact judgment & insight - Labs CBC & Chem 7: 07/09/18 06:11 07/09/18 06:11 Labs: Abnormal Lab Results - Last 24 Hours (Table) 07/09/18 07/09/18 Range/Units 06:11 06:11 RBC 3.59 L (3.80-5.40) m/uL Sodium 136 L (137-145) mmol/L Chloride 111 H (98-107) mmol/L Carbon Dioxide 20 L (22-30) mmol/L Glucose 121 H (74-99) mg/dL Calcium 8.3 L (8.4-10.2) mg/dL Microbiology - Last 24 Hours (Table) 07/08/18 12:00 Gram Stain - Preliminary Synovial Fluid Body Fluid Culture - Preliminary 07/08/18 12:00 Gram Stain - Preliminary Synovial Fluid Body Fluid Culture - Preliminary 07/07/18 20:54 Gram Stain - Preliminary Knee - Left Body Fluid Culture - Preliminary 07/08/18 12:00 Anaerobic Culture - Preliminary Synovial Fluid 07/08/18 12:00 Anaerobic Culture - Preliminary Synovial Fluid 07/06/18 12:14 Blood Culture - Preliminary Blood No Growth after 48 hours 07/06/18 12:05 Blood Culture - Preliminary Blood No Growth after 48 hours Assessment and Plan Plan: Assessment Mental status changes metabolic encephalopathy Essential hypertension Left knee effusion with aspiration and irrigation Urinary retention treated with Cordero catheter History of asthma Dehydration Anxiety reaction History of coronary disease with TX Degenerative disc disease lumbar with osteoarthritis Hyperlipidemia Hiatal hernia Bradycardia with a first-degree AV block Plan Continue consultation with orthopedics and infectious disease regarding suggested medication for discharge We'll attempt to remove Cordero and check for residual urine in for 5 hours
[2018-07-09 13:34] VITALS: BMI 23.8
--- NOTE | 2018-07-09 15:14 | P.PN ---
Subjective Progress Note Date: 07/09/18 Principal diagnosis: S/P left knee arthroscopic I and D Patient is seen at bedside today. She is postop day #1 from left knee arthroscopic I and D. Her knee pain is improved today. She has been ambulating. She has pain at the surgical site as expected but denies any new complaints. She denies numbness, tingling or calf pain. Review of systems is negative for fever, chills, chest pain, shortness of breath or other Objective - Vital Signs Vital signs: Vital Signs Temp 97.8 F 07/09/18 14:16 Pulse 54 L 07/09/18 14:16 Resp 17 07/09/18 14:16 BP 133/77 07/09/18 14:16 Pulse Ox 91 L 07/09/18 14:16 Intake & Output 07/08/18 07/09/18 07/09/18 18:59 06:59 18:59 Intake Total 950 1880 240 Output Total 1880 500 750 Balance -930 1380 -510 Weight 61 kg 61 kg Intake: IV 850 880 Sodium Chloride 0.9% 1, 880 000 ml @ 80 mls/hr IV . [id number] [facility] Rx#:[id number] Intake, IV Titration 200 Amount Cefepime 2 gm In Sodium 200 Chloride 0.9% 100 ml @ 200 mls/hr IVPB Q8H [facility] Rx#:[id number] Oral 100 800 240 Output: Urine 1875 500 750 Estimated Blood Loss 5 Other: Voiding Method Indwelling Catheter Indwelling Catheter Indwelling Catheter # Voids 1 # Bowel Movements 0 - Exam Inspection reveals a benign surgical wounds. There is no active bleeding or drainage. Neurovascular status is intact throughout the lower extremity with motor and sensation fully intact. Calf is soft and nontender. 2+ dorsalis pedis pulse and less than 2 second cap refill is present. - Constitutional General appearance: Present: no acute distress - Labs CBC & Chem 7: 07/09/18 06:11 07/09/18 06:11 Labs: Abnormal Lab Results - Last 24 Hours (Table) 07/09/18 07/09/18 Range/Units 06:11 06:11 RBC 3.59 L (3.80-5.40) m/uL Sodium 136 L (137-145) mmol/L Chloride 111 H (98-107) mmol/L Carbon Dioxide 20 L (22-30) mmol/L Glucose 121 H (74-99) mg/dL Calcium 8.3 L (8.4-10.2) mg/dL Microbiology - Last 24 Hours (Table) 07/06/18 12:14 Blood Culture - Preliminary Blood No Growth after 72 hours 07/06/18 12:05 Blood Culture - Preliminary Blood No Growth after 72 hours 07/08/18 12:00 Gram Stain - Preliminary Synovial Fluid Body Fluid Culture - Preliminary 07/08/18 12:00 Gram Stain - Preliminary Synovial Fluid Body Fluid Culture - Preliminary 07/07/18 20:54 Gram Stain - Preliminary Knee - Left Body Fluid Culture - Preliminary 07/08/18 12:00 Anaerobic Culture - Preliminary Synovial Fluid 07/08/18 12:00 Anaerobic Culture - Preliminary Synovial Fluid Assessment and Plan (1) Knee effusion, left Narrative/Plan: Synovial fluid analysis is negative for crystals and definitive infection thus far. Infectious disease is following and making recommendations regarding antibiotic therapy. Her pain is improved. She may be WBAT as tolerated. Continue pain management, DVT prophylaxis and PT. Will continue to follow. She may D/C when ok with IM/ID. Current Visit: Yes Status: Acute Priority: Medium Code(s): M25.462 - EFFUSION, LEFT KNEE SNOMED Code(s): 477822486207422 (2) Knee pain Current Visit: Yes Status: Acute Priority: Medium Code(s): M25.569 - PAIN IN UNSPECIFIED KNEE SNOMED Code(s): 38705781 Time with Patient: Less than 30
--- NOTE | 2018-07-09 19:49 | PN ---
PROGRESS NOTE DATE OF SERVICE: 07/09/2018 REASON FOR FOLLOWUP: Possible left knee septic arthritis. INTERVAL HISTORY: The patient is currently afebrile. The patient has been breathing comfortably. Denies having any chest pain or shortness of breath or cough. Pain to the left knee is currently controlled with pain medication. No nausea, vomiting or any diarrhea. PHYSICAL EXAMINATION: Blood pressure 133/77 with a pulse of 54, temperature 97.8. She is 91% on room air. General description is an elderly female lying in bed in no distress. RESPIRATORY SYSTEM: Unlabored breathing. Clear to auscultation anteriorly. HEART: S1, S2. Regular rate and rhythm. ABDOMEN: Soft. No tenderness. Left knee is currently dressed up. No obvious drainage on the dressing. LABS: Crystals have been negative. Cultures are currently pending. DIAGNOSTIC IMPRESSION AND PLAN: Patient with left knee pain with purulent joint fluid, status post washout. Crystals have been negative. Cultures are pending. Currently covered with cefepime and vancomycin; to continue while waiting for the culture to finalize. Continue with supportive care. Family at the bedside. Their questions were answered. MMODL / IJN: [id number] /
--- NOTE | 2018-07-09 23:05 | OP ---
OPERATIVE REPORT DATE OF PROCEDURE: 07/08/2018 PREOPERATIVE DIAGNOSES: 1. Left knee acute gout attack versus septic arthritis of the left knee. 2. Right knee effusion. POSTOPERATIVE DIAGNOSES: 1. Left knee acute gout attack versus septic arthritis of the left knee. 2. Right knee effusion. PROCEDURES: 1. Right knee aspiration. 2. Left knee arthroscopic irrigation and debridement. SURGEON: Mckinley Peña MD. ANESTHESIA: General endotracheal. ESTIMATED BLOOD LOSS: Minimal. TOURNIQUET: None. DRAINS: None. COMPLICATIONS: None apparent. DISPOSITION: Post-Anesthesia Care Unit. INDICATIONS: Lianna is a very pleasant 87-year-old female who developed spontaneous effusions of both of her knees over the last 5 days. 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 She has not given any signs of sepsis on the floor. She did develop this insidious onset of effusions of both knees. I did aspirate the left knee last night, and that revealed a cell count of 35,000, which is slightly indeterminate. Unfortunately, the fluid has not been analyzed for crystals as of yet. A decision was made to proceed with arthroscopic irrigation and debridement of the left knee; she may have a septic arthritis of that knee. She also has developed effusion of the right knee, and recommendation was for aspiration of the right knee after she has undergone anesthesia. All of her questions and her daughter's questions with regard to the procedure were answered to their satisfaction. Appropriate informed consent was obtained. The risks of procedure were discussed with her in detail. These risks included but were not limited to risk of infection, nerve damage, bleeding, pain, and a small risk of deep vein thrombosis which could lead to fatal pulmonary emboli. Also, if she does indeed have an infection, this may result in failure to completely eradicate the infection, and further operative treatment may be warranted. All of her questions with regard to these risks were answered to her satisfaction. Appropriate informed consent was obtained. PROCEDURE DESCRIPTION: The patient was identified in the preoperative holding area. Surgical site was marked by both the patient and myself. Antibiotics were held until aspirations of both knees were done. She was then transferred to the operative suite. She was placed supine on the operating room table. A general anesthetic was then administered and dosed per the anesthesia department without apparent complication. I then proceeded to aspirate the right knee. The superior lateral aspect of the knee was prepped with alcohol and Betadine. I then proceeded to aspirate approximately 50 mL of slightly cloudy joint fluid. It did have the appearance of gout versus possible septic arthritis, but in my opinion its appearance was more of gout. This fluid was then sent for analysis. The left lower extremity then prepped and draped in the usual sterile fashion. Standard surgical pause was undertaken to ensure that we were operating on the correct site and that appropriate preoperative antibiotics had been given. All staff in the room were in agreement we proceeded. I then aspirated the left knee. Again, approximately 50 mL of cloudy fluid was aspirated. This fluid was sent for analysis as well. I then allowed the anesthesiologist to give Lianna 2 grams of Ancef. I then proceeded to make an inferolateral portal. A 30- degree arthroscope was introduced into the suprapatellar pouch. The arthroscopic pump pressure was set to 60 mL and maintained at that level throughout the entire case. Next, utilizing an 18- gauge spinal needle and topically localizing the placement, the inferomedial port was made under direct visualization. A standard diagnostic arthroscopy of the knee was then performed. She did have noted crystals within the knee. This did not have the appearance of a septic joint. She did have grade 4 cartilage changes in the trochlea and in the patella. There was fraying of both medial and lateral meniscus, but no evidence of a flap tear. There were no loose bodies evident. I then did a thorough irrigation and debridement of any intra-articular debris utilizing the synovial shaver. I ran 3 L of sterile saline solution through the knee and then arthroscopically lavaged the knee with a further 3 L of fluid with 3 grams of Ancef added. When I was finished, no further work was deemed necessary. The arthroscope and equipment was removed from the knee. The knee was drained with an outflow cannula. The portals were closed with 3-0 nylon interrupted suture. Sterile compressive dressings were then applied. All sponge and needle counts were deemed correct prior to closure. The patient tolerated the procedure without apparent complication. She was transferred to the recovery room in stable condition. We will await the analysis from the fluid from surgery today to make further recommendations. MMODL / IJN: [id number] /
[2018-07-09] MEDS: LORazepam 2 MG/ML INJ IV PRN (23:21)
[2018-07-09] MEDS ORDERED: HALOPERIDOL LACTATE 5 MG/ML 1 ML VIAL IM STA (23:28)
[2018-07-10] MEDS: SODIUM CHLORIDE 0.9% 1,000 ML IV SCH ×2 (00:59→14:45)
[2018-07-10] MEDS ORDERED: VANCOMYCIN 1,250 MG in SODIUM CHLORIDE 0.9% 250 ML IVPB SCH (06:00)
[2018-07-10] MEDS: MULTIVITAMINS, THERA 1 EACH TAB PO SCH ×2 (07:50→08:29)
[2018-07-10] MEDS: LISINOPRIL 10 MG TAB PO SCH ×2 (07:50→08:29)
[2018-07-10] MEDS: THIAMINE 100 MG TAB PO SCH ×2 (07:50→08:29)
[2018-07-10] MEDS: VITAMIN E (DL,TOCOPHERYL ACET) 400 UNIT CAP PO SCH ×2 (07:51→08:29)
[2018-07-10 10:30] LABS: Basophils % (A) 0 %; Eosinophils # (A) 0.3 k/uL (0-0.7); Eosinophils % (A) 4 %; HCT 35.2 % (34.0-46.0); HGB 11.6 gm/dL (11.4-16.0); Lymphocytes # (A) 1.2 k/uL (1.0-4.8); Lymphocytes % (A) 19 %; MCH 31.3 pg (25.0-35.0); MCV 94.8 fL (80.0-100.0); Mean Platelet Volume 7.6; Monocytes # (A) 0.3 k/uL (0-1.0); Monocytes % (A) 5 %; Neutrophils # (A) 4.4 k/uL (1.3-7.7); Neutrophils % (A) 70 %; Platelet Count 249 k/uL (150-450); RBC 3.71 m/uL (3.80-5.40); RDW 13.6 % (11.5-15.5); WBC 6.3 k/uL (3.8-10.6)
--- NOTE | 2018-07-10 10:39 | P.PN ---
Subjective Progress Note Date: 07/10/18 Principal diagnosis: S/P left knee arthroscopic I and D Patient is seen at bedside today. She is postop day #2 from left knee arthroscopic I and D. Her knee pain continues to be improved today. She has been ambulating. She has pain at the surgical site as expected but denies any new complaints. She denies numbness, tingling or calf pain. Review of systems is negative for fever, chills, chest pain, shortness of breath or other Objective - Vital Signs Vital signs: Vital Signs Temp 98.4 F 07/10/18 05:22 Pulse 97 07/10/18 05:22 Resp 18 07/10/18 07:32 BP 155/88 07/10/18 05:22 Pulse Ox 97 07/10/18 05:22 Intake & Output 07/09/18 07/10/18 07/10/18 18:59 06:59 18:59 Intake Total 240 Output Total 750 800 Balance -510 -800 Weight 61 kg Intake: Oral 240 Output: Urine 750 800 Straight 800 Other: Voiding Method Toilet Toilet Toilet # Voids 2 # Bowel Movements 0 - Exam Inspection reveals benign surgical wounds. There is no active bleeding or drainage. Neurovascular status is intact throughout the lower extremity with motor and sensation fully intact. Calf is soft and nontender. 2+ dorsalis pedis pulse and less than 2 second cap refill is present. - Constitutional General appearance: Present: no acute distress - Labs CBC & Chem 7: 07/10/18 09:32 07/09/18 06:11 Labs: Abnormal Lab Results - Last 24 Hours (Table) 07/10/18 Range/Units 09:32 RBC 3.71 L (3.80-5.40) m/uL Microbiology - Last 24 Hours (Table) 07/08/18 12:00 Gram Stain - Preliminary Synovial Fluid Body Fluid Culture - Preliminary 07/08/18 12:00 Gram Stain - Preliminary Synovial Fluid Body Fluid Culture - Preliminary 07/07/18 20:54 Gram Stain - Preliminary Knee - Left Body Fluid Culture - Preliminary 07/06/18 12:14 Blood Culture - Preliminary Blood No Growth after 72 hours 07/06/18 12:05 Blood Culture - Preliminary Blood No Growth after 72 hours Assessment and Plan (1) Knee effusion, left Narrative/Plan: Synovial fluid analysis is negative for crystals. Cultures continue to be negative as well. Infectious disease is following and making recommendations regarding antibiotic therapy. Her pain is improved. She may be WBAT as tolerated. Continue pain management, DVT prophylaxis and PT. She may D/C when ok with IM/ID and follow up with Dr. Peña as an outpatient around post op day 10. Current Visit: Yes Status: Acute Priority: Medium Code(s): M25.462 - EFFUSION, LEFT KNEE SNOMED Code(s): 565910523440471 (2) Knee pain Current Visit: Yes Status: Acute Priority: Medium Code(s): M25.569 - PAIN IN UNSPECIFIED KNEE SNOMED Code(s): 54248091 Time with Patient: Less than 30
[2018-07-10] MEDS: CEFEPIME 2 GM in SODIUM CHLORIDE 0.9% 100 ML IVPB SCH (11:28)
--- NOTE | 2018-07-10 11:29 | P.PN ---
Subjective Patient had problems with confused behavior last night. Patient was sedated with Haldol. Sitter at bedside no. Had discussion with family patient's mentation is deteriorated quite a bit the last 2 weeks. Baseline includes able to maintain household code claim in shop. Awaiting for discharge from infectious disease need final culture report Objective - Vital Signs Vital signs: Vital Signs Temp 98.4 F 07/10/18 05:22 Pulse 97 07/10/18 05:22 Resp 18 07/10/18 07:32 BP 155/88 07/10/18 05:22 Pulse Ox 97 07/10/18 05:22 Intake & Output 07/09/18 07/10/18 07/10/18 18:59 06:59 18:59 Intake Total 240 Output Total 750 800 Balance -510 -800 Weight 61 kg Intake: Oral 240 Output: Urine 750 800 Straight 800 Other: Voiding Method Toilet Toilet Toilet # Voids 2 # Bowel Movements 0 - Constitutional General appearance: Present: mild distress - EENT Eyes: Present: PERRLA Ears: bilateral: normal - Neck Neck: Present: normal ROM - Respiratory Respiratory: bilateral: CTA - Cardiovascular Rhythm: regular - Gastrointestinal General gastrointestinal: Present: soft - Integumentary Integumentary: Present: normal - Neurologic Neurologic: Present: CNII-XII intact - Musculoskeletal Musculoskeletal: Present: generalized weakness - Psychiatric Psychiatric Comment(s): Pleasantly confused this morning - Labs CBC & Chem 7: 07/10/18 09:32 07/09/18 06:11 Labs: Abnormal Lab Results - Last 24 Hours (Table) 07/10/18 Range/Units 09:32 RBC 3.71 L (3.80-5.40) m/uL Microbiology - Last 24 Hours (Table) 07/08/18 12:00 Gram Stain - Preliminary Synovial Fluid Body Fluid Culture - Preliminary 07/08/18 12:00 Gram Stain - Preliminary Synovial Fluid Body Fluid Culture - Preliminary 07/07/18 20:54 Gram Stain - Preliminary Knee - Left Body Fluid Culture - Preliminary 07/06/18 12:14 Blood Culture - Preliminary Blood No Growth after 72 hours 07/06/18 12:05 Blood Culture - Preliminary Blood No Growth after 72 hours Assessment and Plan Plan: Assessment Altered mental status metabolic encephalopathy Essential hypertension Left knee effusion post aspiration irrigation Urinary retention Anxiety reaction Dehydration Syncope ruling out seizure disorder History of asthma 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 Chao not available this week for neurology Awaiting culture reports finalized
[2018-07-10 14:22] VITALS: BP 147/83; PULSE 92; RESP 16; TEMP 98.2
--- NOTE | 2018-07-10 15:55 | PN ---
PROGRESS NOTE DATE OF SERVICE: 07/10/2018 REASON FOR FOLLOWUP: Possible left knee septic arthritis. INTERVAL HISTORY: The patient is currently afebrile. The patient has been breathing comfortably. Denies having any chest pain or discomfort. No abdominal pain or any worsening pain to the left knee area. PHYSICAL EXAMINATION: Blood pressure 147/86 with a pulse of 92, temperature 98.2. She is 92% on room air. General description is an elderly female lying in bed in no distress. RESPIRATORY SYSTEM: Unlabored breathing. Clear to auscultation anteriorly. HEART: S1, S2. Regular rate and rhythm. ABDOMEN: Soft. No tenderness. Left knee currently with no swelling, redness or warmth. LABS: Hemoglobin is 11.6, white count 6.3, BUN of 10, creatinine 0.69. The left knee cultures remain negative. Blood culture has been negative. DIAGNOSTIC IMPRESSION AND PLAN: Patient with left knee pain. Did have some cloudy fluid. White count was only 37,000; however, cultures negative. The patient did not have any fever or elevated white count, making this to be less likely a septic arthritis. Recommend no antibiotic on discharge. This was discussed in detail with Yassine ERICKSON, who agrees with the plan. Did request a short course of oral Keflex to be in the safe side. The patient will be seen in the office in a week. Family was present at the bedside. Their questions and concerns were answered. MMJUSTAL / IJN: [id number] / NISREEN
--- NOTE | 2018-07-10 16:44 | P.DS ---
Providers Date of admission: 07/05/18 09:41 Expected date of discharge: 07/10/18 Attending physician: Jeff Mack Consults: 07/05/18 09:42 Consult Physician Routine Consulting Provider: Nadia Chao Consult Reason/Comments: Syncopal episode Do you want consulting provider notified?: Yes 07/05/18 10:47 Consult Physician Urgent Consulting Provider: Ashwin Anand Consult Reason/Comments: bradycardia syncope Do you want consulting provider notified?: Yes 07/05/18 16:06 Consult Physician Urgent Consulting Provider: Yosi Rai Consult Reason/Comments: known patient, urinary retention Do you want consulting provider notified?: Yes 07/07/18 14:10 Consult Physician Urgent Consulting Provider: Mckinley Peña Consult Reason/Comments: left cinda pain and swelling, r/o spetic arthritis, pt presentd with deliriu Do you want consulting provider notified?: Yes 07/08/18 12:53 Consult Physician Urgent Consulting Provider: Gerda Kennedy Consult Reason/Comments: septic arthritis??? Do you want consulting provider notified?: Yes Primary care physician: Jeff Mack Hospital Course: 87 year old female was admitted for syncopal episode has seen Dr Dixon for possible seizure activity.Patient was unable to cooperate to have testing completed.Patient was evaluated by cardiology for bradycardia. Was evaluated by urology for urinary retention. Had left knee aspiration for effusion with orthopedics.Infectious disease evaluated possible septic knee was ruled out.Will continue neurology work up out patient. assessment syncope unknown etiology altered mental status metabolic encephalopathy essential hypertension left knee effusion septic knee ruled out urinary retention anxiety disorder Hx CAD with OK degenerative disc disease hyperlipidemia hiatal hernia Plan follow up with family harry Mack urology orthopedics and infectious disease Patient Condition at Discharge: Fair Plan - Discharge Summary Discharge Rx Participant: No New Discharge Prescriptions: New Cephalexin [Keflex] 500 mg PO Q8HR #21 cap Acetaminophen Tab [Tylenol] 650 mg PO Q6HR PRN tab PRN Reason: Mild Pain Or Fever > 100.5 Lisinopril [Zestril] 10 mg PO DAILY #30 tab Continue Multivitamins, Thera [Multivitamin (formulary)] 1 tab PO DAILY Vitamin E (Dl,Tocopheryl Acet) [Vitamin E] 400 unit PO BID Discontinued Levofloxacin [Levaquin] 500 mg PO DAILY Discharge Medication List Multivitamins, Thera [Multivitamin (formulary)] 1 tab PO DAILY 07/05/18 [History] Vitamin E (Dl,Tocopheryl Acet) [Vitamin E] 400 unit PO BID 07/05/18 [History] Acetaminophen Tab [Tylenol] 650 mg PO Q6HR PRN tab 07/10/18 [Rx] Cephalexin [Keflex] 500 mg PO Q8HR #21 cap 07/10/18 [Rx] Lisinopril [Zestril] 10 mg PO DAILY #30 tab 07/10/18 [Rx] Follow up Appointment(s)/Referral(s): [facility], [NON-STAFF] - None,Stated [REFERRING] - 1-2 days Gerda Kennedy MD [STAFF PHYSICIAN] - 07/17/18 2:45 pm Yosi Rai MD [STAFF PHYSICIAN] - 1 Week (office to call to set up appt.) Mckinley Peña MD [STAFF PHYSICIAN] - 07/17/18 10:00 am Patient Instructions/Handouts: Dehydration (DC), Care For Your Stitches (DC), Swollen Knee Joint (ED), Joint Incision and Drainage (DC) Activity/Diet/Wound Care/Special Instructions: WBAT keep wounds clean and dry may shower after 72 hrs if no bleeding
--- NOTE | 2018-07-11 07:58 | CDI ---
Documentation Clarification Form Date: 07/09/2018 9:00:00 AM From: Madison SaldivarSaenzKENAN, CCDS Admit Date: 07/05/2018 9:41:00 AM Patient Name: Lianna Caruso Visit Number: [id number] Discharge Date: 07/10/2018 4:47:00 PM ATTENTION: The Clinical Documentation Specialists (CDI) and [facility] Coding Staff appreciate your assistance in clarifying documentation. Please respond to the clarification below the line at the bottom and electronically sign. The CDI & [facility] Coding staff will review the response and follow-up if needed. Please note: Queries are made part of the Legal Health Record. If you have any questions, please contact the author of this message via ITS. Dr. Jeff Mack: Per the 07/05 History & Physical: patient was found in the bathroom sitting on the toilet with some tremorous motion, family concerned with seizures. Patient was noted to be hypertension, Lisinopril started. History/Risk Factors: Osteoarthritis, Spinal stenosis w/chronic back pain radiates down left leg with numbness, born with single kidney & allergy induced asthma. Clinical Indicators: Presented from home with altered mental status & tremorous motions, family concerned for seizures. Encephalopathy, dehydration & bradycardia also noted, did not appear to be septic. VS: T 97.4*, P 65, R 18 - 25^, BP 179/90^, PO 97 RA Labs: pH 7.60^^, pCO2 19; K 3.4*, Glucose 101^. UA: clear, negative nitrite, WBC 6. Stool occult blood: negative. EKG: R 54 sinus bradycardia w/1st degree AV block RAD: Carotid Doppler: <50% stenosis bilateral internal carotid arteries, 50-70% stenosis left external carotid artery. Treatment: IV fluid bolus x2, IV fluid rate 75, IV Ativan x2, IV Narcan, IV Lasix, IV Tylenol, IV Apresoline Consults: Urology (urinary retention), Neurology (possible seizures & altered mental status), Orthopedics (left knee effusion) In your professional opinion, can you please clarify the specific type of hypertension, if known? Hypertensive Emergency Hypertensive Urgency Other hypertensive, please specify Unable to determine (Last Revision: May 2017) MTDD
--- NOTE | 2018-07-11 12:50 | CDI ---
Documentation Clarification Form Date: 07/11/18 From: Lata Bradford Phone: If you have a question regarding this query, please contact Zulema Rhodes at [phone] between 8am and 5pm. Admit Date: 07/05/2018 9:41:00 AM Patient Name: Lianna Caruso Visit Number: [id number] Discharge Date: 07/10/2018 4:47:00 PM ATTENTION: The Clinical Documentation Specialists (CDI) and [facility] Coding Staff appreciate your assistance in clarifying documentation. Please respond to the clarification below the line at the bottom and electronically sign. The CDI & [facility] Coding staff will review the response and follow-up if needed. Please note: Queries are made part of the Legal Health Record. If you have any questions, please contact the author of this message via ITS. Mariposa Jarrell PA-C/Dr. Jeff Mack Septic arthritis vs gout is documented in Dr. Peña's 07/08 progress note and OP note, Dr. Chao's 07/[address] Kennedy's consult note. Gout is not documented in the discharge summary. Patient history/risk factors: Patient presented with syncope and metabolic encephalopathy. Clinical indicators: Excruciating pain in the left knee, unable to weight bear, effusion bilateral knees Labs: No crystals seen in the synovial fluid per the synovial fluid analysis. Treatment: Irrigation and debridement of the left knee. 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
--- NOTE | 2018-07-11 12:58 | CDI ---
Documentation Clarification Form Date: 07/11/18 From: Lata Bradford Phone: If you have a question regarding this query, please contact Zulema Rhodes at [phone] between 8am and 5pm. Admit Date: 07/05/2018 9:41:00 AM Patient Name: Lianna Caruso Visit Number: [id number] Discharge Date: 07/10/2018 4:47:00 PM ATTENTION: The Clinical Documentation Specialists (CDI) and [facility] Coding Staff appreciate your assistance in clarifying documentation. Please respond to the clarification below the line at the bottom and electronically sign. The CDI & [facility] Coding staff will review the response and follow-up if needed. Please note: Queries are made part of the Legal Health Record. If you have any questions, please contact the author of this message via ITS. Dr. Mckinley Peña Per your progress notes/operative note, an irrigation and debridement was performed on the left knee. History/Risk Factors: Patient was admitted with effusion in bilateral knees, excruciating pain of the left knee and unable to bear weight on the left knee. Clinical Indicators: Swelling and pain Treatment: Irrigation and debridement. In order to capture the severity of condition and code the appropriate procedure; could you please document the following: Excisional debridement (the removal of necrotic, devitalized tissue or slough by means of cutting away of tissue) Non-excisional debridement (the removal of necrotic, devitalized tissue or slough by means of flushing, brushing, or washing. (Irrigation) Other; please specify Unable to determine MTDD
--- NOTE | 2018-07-12 11:14 | P.PN ---
Progress Note - Text Addendum Regarding knee effusion Negative septic knee cultures negative No crystals seen negative gout
--- NOTE | 2018-07-16 13:01 | CDI ---
Documentation Clarification Form Date: 07/16/18 From: Lata Bradford Phone: If you have a question regarding this query, please contact Zulema Rhodes at [phone] between 8am and 5pm. Admit Date: 07/05/2018 9:41:00 AM Patient Name: Lianna Caruso Visit Number: [id number] Discharge Date: 07/10/2018 4:47:00 PM ATTENTION: The Clinical Documentation Specialists (CDI) and [facility] Coding Staff appreciate your assistance in clarifying documentation. Please respond to the clarification below the line at the bottom and electronically sign. The CDI & [facility] Coding staff will review the response and follow-up if needed. Please note: Queries are made part of the Legal Health Record. If you have any questions, please contact the author of this message via ITS. Dr. Mckinley Peña Thank you for signing the previous query. Please document a response before signing this query. Per your progress notes/operative note, an irrigation and debridement was performed on the left knee. History/Risk Factors: Patient was admitted with effusion in bilateral knees, excruciating pain of the left knee and unable to bear weight on the left knee. Clinical Indicators: Swelling and pain Treatment: Irrigation and debridement. In order to capture the severity of condition and code the appropriate procedure; could you please document the following: Excisional debridement (the removal of necrotic, devitalized tissue or slough by means of cutting away of tissue) Non-excisional debridement (the removal of necrotic, devitalized tissue or slough by means of flushing, brushing, or washing. (Irrigation) Other; please specify Unable to determine It was a non excisional debridement MTDD
--- NOTE | 2018-07-16 13:06 | CDI ---
Documentation Clarification Form Date: 07/11/2018 12:51:00 PM From: Lata Bradford Phone: Admit Date: 07/05/2018 9:41:00 AM Patient Name: Lianna Caruso Visit Number: [id number] Discharge Date: 07/10/2018 4:47:00 PM ATTENTION: The Clinical Documentation Specialists (CDI) and [facility] Coding Staff appreciate your assistance in clarifying documentation. Please respond to the clarification below the line at the bottom and electronically sign. The CDI & [facility] Coding staff will review the response and follow-up if needed. Please note: Queries are made part of the Legal Health Record. If you have any questions, please contact the author of this message via ITS. Mariposa Jarrell PA-C/Dr. Jeff Mack Thank you for signing the previous query. Please document a response before signing this query. Septic arthritis vs gout is documented in Dr. Peña's 07/08 progress note and OP note, Dr. Chao's 07/[address] Kennedy's consult note. Gout is not documented in the discharge summary. Patient history/risk factors: Patient presented with syncope and metabolic encephalopathy. Clinical indicators: Excruciating pain in the left knee, unable to weight bear, effusion bilateral knees Labs: No crystals seen in the synovial fluid per the synovial fluid analysis. Treatment: Irrigation and debridement of the left knee. 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
--- NOTE | 2018-07-16 18:07 | P.PN ---
Progress Note - Text Addendum Gout and sepsis ruled out. Cultures negative. No crystals seen in laboratory examination. No explanation for inflammation
== END 2018-07-10 16:47 | disposition home health service (06) | DRG 988 ==
LOC: EC 06:54 → 3SCARD 09:41 → 4MS4W 07-09 10:49
PROVIDERS: ADMIT Family Medicine; ATTEND Family Medicine
PROC: 0SBD4ZZ Excision of Left Knee Joint, Percutaneous Endoscopic Approach (ICD-10-PCS; principal; 2018-07-09)
PROC: 0S9C3ZZ Drainage of Right Knee Joint, Percutaneous Approach (ICD-10-PCS; 2018-07-09)
DX: G93.41 Metabolic encephalopathy (principal); I65.23 Occlusion and stenosis of bilateral carotid arteries; Q60.0 Renal agenesis, unilateral; N20.1 Calculus of ureter; E86.0 Dehydration; M41.9 Scoliosis, unspecified; R00.1 Bradycardia, unspecified; E78.5 Hyperlipidemia, unspecified; F41.1 Generalized anxiety disorder; I10 Essential (primary) hypertension; I25.10 Atherosclerotic heart disease of native coronary artery without angina pectoris; I25.2 Old myocardial infarction; I44.0 Atrioventricular block, first degree; J45.909 Unspecified asthma, uncomplicated; K44.9 Diaphragmatic hernia without obstruction or gangrene; M19.90 Unspecified osteoarthritis, unspecified site; F32.9 Major depressive disorder, single episode, unspecified; M51.36 Other intervertebral disc degeneration, lumbar region; M47.816 Spondylosis without myelopathy or radiculopathy, lumbar region; N26.1 Atrophy of kidney (terminal); N30.20 Other chronic cystitis without hematuria; G89.29 Other chronic pain; M48.00 Spinal stenosis, site unspecified; M25.462 Effusion, left knee; M54.9 Dorsalgia, unspecified; R06.4 Hyperventilation; R33.9 Retention of urine, unspecified; R55 Syncope and collapse; R19.7 Diarrhea, unspecified; R41.0 Disorientation, unspecified; Z88.6 Allergy status to analgesic agent; Z90.49 Acquired absence of other specified parts of digestive tract; Z98.42 Cataract extraction status, left eye; Z98.41 Cataract extraction status, right eye; Z96.1 Presence of intraocular lens; Z80.9 Family history of malignant neoplasm, unspecified
CPT/HCPCS: 36415; 36600; 70450; 71045; 71046; 80048; 80053; 81001; 82140; 82272; 82550; 82607; 82746; 82805; 83036; 83605; 83735; 84439; 84443; 84484; 84550; 85025; 85027; 85610; 85652; 85730; 86140; 87040; 87070; 87075; 87205; 89050; 89060; 93005; 93880; 94760; 96361; 96374; 99291